=== PATIENT | male | born 1995 | race Caucasian/White ===

== ENCOUNTER 2017-10-03 16:48 | Emergency (ER) | payer MEDICAID, OTHER ==
[~2017-10-03] VITALS: Ht 182.9 cm; Wt 68.0 kg
[~2017-10-03 16:48] MED LIST: KEPP750T PO; OXCA600T PO
[2017-10-03 17:00] VITALS: BP 140/66; PULSE 105; RESP 20; TEMP 98.4; O2SAT 97
[2017-10-03] MEDS ORDERED: LORazepam 2 MG/ML VIAL IV PUSH ONE (17:15)
[2017-10-03] MEDS ORDERED: SODIUM CHLOR 0.9% 1000 ML INJ 1,000 ML IV ONE (17:15)
--- NOTE | 2017-10-03 17:24 | PD ---
HPI Chief Complaint: Seizure Time Seen by Provider: 17:01 Travel History International Travel<30 days: No Contact w/Intl Traveler<30days: No Traveled to known affect area: No History of Present Illness HPI 22-year-old male presents to emergency department after witnessed seizure. Patient reports a history of seizures in the past for many years. According to records she is on Tegretol and Keppra. Patient states she has been taking both his medications regularly. He denies any recent illness or injury. Otherwise has been feeling well. EMS describes about 1-1/2 minutes with the generalized tonic-clonic activity followed by postictal confusion. Patient gradually been coming around and seems more oriented now. I spoke to the patient's mom, Lizeth Oakley, who is coming to the emergency department. History Past Medical History Narrative Medical Seizure disorder Social History Alcohol Use: No Tobacco Use: No Allergies-Medications (Allergen,Severity, Reaction): Coded Allergies: latex (Unverified Allergy, Severe, HIVES , 10/03/17) Reported Meds & Prescriptions Reported Meds & Active Scripts Active Keppra (Levetiracetam) 750 Mg Tab 2 Tab PO BID Oxcarbazepine 600 Mg Tab 600 Mg PO BID Review of Systems Except as stated in HPI: all other systems reviewed are Neg Physical Exam Narrative GENERAL: Well-appearing 22-year-old man, no acute distress. SKIN: Focused skin assessment warm/dry. HEAD: Atraumatic. Normocephalic. EYES: Pupils equal and round. No scleral icterus. No injection or drainage. ENT: No nasal bleeding or discharge. Mucous membranes pink and moist. NECK: Trachea midline. No JVD. CARDIOVASCULAR: Regular rate and rhythm. No murmur appreciated. RESPIRATORY: No accessory muscle use. Clear to auscultation. Breath sounds equal bilaterally. GASTROINTESTINAL: Abdomen soft, non-tender, nondistended. Hepatic and splenic margins not palpable. MUSCULOSKELETAL: No obvious deformities. No clubbing. No cyanosis. No edema. NEUROLOGICAL: Awake and alert. Slight confusion. No obvious cranial nerve deficits. Motor grossly within normal limits. Normal speech. PSYCHIATRIC: Appropriate mood and affect; insight and judgment normal. Data Data Last Documented VS Vital Signs Date Time Temp Pulse Resp B/P (MAP) Pulse Ox O2 Delivery O2 Flow Rate FiO2 10/03/17 17:32 110 20 97 Room Air 10/03/17 17:00 98.4 140/66 (90) Orders Orders Complete Blood Count With Diff (10/03/17 17:06) Comprehensive Metabolic Panel (10/03/17 17:06) Iv Access Insert/Monitor (10/03/17 17:06) Lorazepam Inj (Ativan Inj) (10/03/17 17:15) Trileptal (Oxycarbazapine) (10/03/17 17:08) Sodium Chlor 0.9% 1000 Ml Inj (Ns 1000 M (10/03/17 17:15) Electrocardiogram (10/03/17 ) Labs Laboratory Tests Test 10/03/17 17:27 White Blood Count 8.3 TH/MM3 Red Blood Count 5.46 MIL/MM3 Hemoglobin 17.1 GM/DL Hematocrit 48.4 % Mean Corpuscular Volume 88.5 FL Mean Corpuscular Hemoglobin 31.3 PG Mean Corpuscular Hemoglobin Concent 35.3 % Red Cell Distribution Width 13.1 % Platelet Count 185 TH/MM3 Mean Platelet Volume 9.4 FL Neutrophils (%) (Auto) 50.0 % Lymphocytes (%) (Auto) 35.3 % Monocytes (%) (Auto) 11.1 % Eosinophils (%) (Auto) 3.0 % Basophils (%) (Auto) 0.6 % Neutrophils # (Auto) 4.2 TH/MM3 Lymphocytes # (Auto) 2.9 TH/MM3 Monocytes # (Auto) 0.9 TH/MM3 Eosinophils # (Auto) 0.3 TH/MM3 Basophils # (Auto) 0.0 TH/MM3 CBC Comment AUTO DIFF Differential Comment AUTO DIFF CONFIRMED Platelet Estimate NORMAL Platelet Morphology Comment NORMAL Blood Urea Nitrogen 9 MG/DL Creatinine 1.27 MG/DL Random Glucose 95 MG/DL Total Protein 7.7 GM/DL Albumin 4.6 GM/DL Calcium Level 9.2 MG/DL Alkaline Phosphatase 103 U/L Aspartate Amino Transf (AST/SGOT) 16 U/L Alanine Aminotransferase (ALT/SGPT) 25 U/L Total Bilirubin 0.5 MG/DL Sodium Level 137 MEQ/L Potassium Level 3.2 MEQ/L Chloride Level 99 MEQ/L Carbon Dioxide Level 23.4 MEQ/L Anion Gap 15 MEQ/L Estimat Glomerular Filtration Rate 70 ML/MIN [facility] Medical Decision Making Medical Screen Exam Complete: Yes Emergency Medical Condition: Yes Interpretation(s) My review of EKG: Sinus tachycardia at 128, normal axis, normal intervals, no acute ischemia. LABS: CBC is unremarkable. CMP is unremarkable. Tegretol pending Differential Diagnosis Seizure, electrolyte abnormality, head injury, other Narrative Course Medical decision making INITIAL: 22-year-old man presents to the emergency department with seizure. History of seizures. All medications. Looks well. No evidence of significant injury. Will check labs, reassess. Diagnosis Primary Impression: Seizure Patient Instructions: General Instructions Additional Instructions: Do not drive or operate heavy machinery until cleared by neurology. You should avoid being in any situation where if you had a seizure it could be dangerous such as swimming, looking on a ladder, or other such activities. Return to the emergency department for any seizures lasting more than 5 minutes , [id number] seizures, or seizures with prolonged confusion afterwards. Med/Other Pt SpecificInfo: No Change to Meds Disposition: 01 DISCHARGE HOME Condition: Stable Marquez Lorenzo MD Oct 03, 2017 17:24
[2017-10-03 18:16] LABS: AUTOMATED NEUTROPHIL # 4.2 TH/MM3 (1.8-7.7); BASOPHIL % 0.6 % (0.0-2.0); EOSINOPHIL # 0.3 TH/MM3 (0-0.4); HEMATOCRIT 48.4 % (39.0-51.0); HEMOGLOBIN 17.1 GM/DL (13.0-17.0); LYMPH % 35.3 % (9.0-44.0); LYMPHOCYTE # 2.9 TH/MM3 (1.0-4.8); MEAN CELL VOLUME 88.5 FL (80.0-100.0); MEAN CORPUSCULAR HEMOGLOBIN 31.3 PG (27.0-34.0); MEAN CORPUSCULAR HGB CONC 35.3 % (32.0-36.0); MEAN PLATELET VOLUME 9.4 FL (7.0-11.0); MONO % 11.1 % (0.0-8.0); MONOCYTE # 0.9 TH/MM3 (0-0.9); PLATELET COUNT 185 TH/MM3 (150-450); RED BLOOD COUNT 5.46 MIL/MM3 (4.50-5.90); RED CELL DISTRIBUTION WIDTH 13.1 % (11.6-17.2); WHITE BLOOD COUNT 8.3 TH/MM3 (4.0-11.0)
[2017-10-03 18:39] LABS: ALBUMIN 4.6 GM/DL (3.4-5.0); AST (GOT) 16 U/L (15-37); BICARBONATE 23.4 MEQ/L (21.0-32.0); BLOOD UREA NITROGEN 9 MG/DL (7-18); CALCIUM 9.2 MG/DL (8.5-10.1); CHLORIDE 99 MEQ/L (98-107); CREATININE 1.27 MG/DL (0.60-1.30); GLOMERULAR FILTRATION RATE 70 ML/MIN (>89); GLUCOSE,RANDOM 95 MG/DL (74-106); SODIUM (NA) 137 MEQ/L (136-145)
[2017-10-03 18:41] LABS: ALT (GPT) 25 U/L (12-78)
[2017-10-03 18:42] LABS: ALKALINE PHOSPHATASE 103 U/L (45-117); TOTAL BILIRUBIN ADULT 0.5 MG/DL (0.2-1.0); TOTAL PROTEIN 7.7 GM/DL (6.4-8.2)
[2017-10-03 19:32] VITALS: BP 120/66
--- NOTE | 2017-10-04 00:41 | EKG ---
Date Performed: 10/03/2017 Time Performed: 17:06:09 PTAGE: 22 years EKG: SINUS TACHYCARDIA NONSPECIFIC T-WAVE ABNORMALITY ABNORMAL RHYTHM ECG INTERPRETATION BASED O N A DEFAULT AGE OF 38 YEARS NO PREVIOUS TRACING DOCTOR: Rudolph Dumont Interpretating Date/Time 10/04/2017 00:40:48
== END 2017-10-03 19:35 | disposition home or self-care (01) ==
LOC: NEPC 16:48
DX: G40.909 Epilepsy, unspecified, not intractable, without status epilepticus (principal); R94.31 Abnormal electrocardiogram [ECG] [EKG]
CPT/HCPCS: 80053; 80183; 85025; 93005; 96374; 99284; J2060; J7030

== ENCOUNTER 2017-12-13 21:02 | Inpatient (IN) | payer MEDICAID ==
[~2017-12-13] VITALS: Ht 182.9 cm; Wt 93.1 kg
[2017-12-13 21:24] VITALS: BP 118/77; PULSE 80; RESP 16; TEMP 97.6; O2SAT 98
[2017-12-13 21:30] VITALS: RESP 16; O2SAT 99
[2017-12-13] MEDS ORDERED: TETANUS/DIPHTHERIA TOXOID ADULT 0.5 ML VIAL IM ONE (22:00)
[2017-12-13] MEDS ORDERED: LIDOCAINE 1%/EPINEPHrine 1:100,000 SOLN 20 ML VIAL INFIL ONE (22:00)
[2017-12-13] MEDS ORDERED: LIDOCAINE 1%/EPINEPHrine 1:100,000 SOLN 30 ML VIAL ONE (22:01)
--- NOTE | 2017-12-13 22:20 | PD ---
HPI Chief Complaint: Head Injury Time Seen by Provider: 21:53 Travel History International Travel<30 days: No Contact w/Intl Traveler<30days: No Traveled to known affect area: No History of Present Illness HPI 22-year-old male with history of seizure disorder, autism, presents with his mother for evaluation of a witnessed seizure. 3 hours prior to examination patient was at a store when he had a 1 minute generalized tonic-clonic seizure which his mother witnessed. He did hit his head against the ground. He has a laceration to the left parietal scalp as well as a generalized headache and some lightheadedness. There is no tongue biting or incontinence of urine. He denies any neck or back pain, chest pain or shortness of breath, abdominal pain , injury to the extremities. Last tetanus vaccination unknown. He has been compliant with this Keppra and oxcarbazepine regimen. His mother administer diazepam at home prior to arrival. No other complaints at this time. PFSH Past Medical History Developmental Delay: Yes Psychiatric: Yes (AUTISTIC) Respiratory: Yes (BRONCHITIS) Immunizations Current: Yes Seizures: Yes Social History Alcohol Use: No Tobacco Use: No Allergies-Medications (Allergen,Severity, Reaction): Coded Allergies: adhesive (Verified Allergy, Severe, 12/13/17) latex (Unverified Allergy, Severe, HIVES , 12/13/17) Reported Meds & Prescriptions Reported Meds & Active Scripts Active Keppra (Levetiracetam) 750 Mg Tab 2 Tab PO BID Oxcarbazepine 600 Mg Tab 600 Mg PO BID Review of Systems Except as stated in HPI: all other systems reviewed are Neg Physical Exam Narrative GENERAL: Pleasant well-developed well-nourished male in no acute distress awake and alert. SKIN: Warm and dry. 2 cm left parietal scalp laceration with underlying hematoma. HEAD: Skin as noted above. Normocephalic. EYES: Pupils equal and round. No scleral icterus. No injection or drainage. ENT: No nasal bleeding or discharge. Mucous membranes pink and moist. NECK: Trachea midline. No JVD. CARDIOVASCULAR: Regular rate and rhythm. No murmur appreciated. RESPIRATORY: No accessory muscle use. Clear to auscultation. Breath sounds equal bilaterally. GASTROINTESTINAL: Abdomen soft, non-tender, nondistended. Hepatic and splenic margins not palpable. MUSCULOSKELETAL: No obvious deformities. No clubbing. No cyanosis. No edema. NEUROLOGICAL: Awake and alert. No obvious cranial nerve deficits. Motor grossly within normal limits. Normal speech. Data Data Last Documented VS Vital Signs Date Time Temp Pulse Resp B/P (MAP) Pulse Ox O2 Delivery O2 Flow Rate FiO2 12/13/17 21:30 16 99 Room Air 12/13/17 21:24 97.6 80 Orders Orders Tetanus/Diphtheria Tox Adult (Tetanus/Di (12/13/17 22:00) Lidocai-Epi 1%-1:100,000 Inj (Xylocaine- (12/13/17 22:00) Lidocai-Epi 1%-1:100,000 Inj (Xylocaine- (12/13/17 22:01) Basic Metabolic Panel (Bmp) (12/13/17 22:27) Ct Brain W/O Iv Contrast(Rout) (12/13/17 ) Magnesium (Mg) (12/13/17 22:27) Blood Glucose (12/13/17 22:27) Complete Blood Count With Diff (12/14/17 00:21) Iv Access Insert/Monitor (12/14/17 00:21) Ecg Monitoring (12/14/17 00:21) Oximetry (12/14/17 00:21) Admit Order (Ed Use Only) (12/14/17 00:25) Consult Neurosurgery (12/14/17 ) MDM Medical Decision Making Medical Screen Exam Complete: Yes Emergency Medical Condition: Yes Medical Record Reviewed: Yes Differential Diagnosis Breakthrough seizure, medication noncompliance, closed head injury, intracranial hemorrhage, scalp laceration Narrative Course Laceration will be repaired with sumanth, he verbally consents. Tetanus status updated. CT the brain, BMP, blood glucose ordered. The patient will be monitored here. At the end of my shift the patient was signed out to Dr. Perez pending lab work and imaging studies. Procedures Procedure Narrative LACERATION LOCATION: Left parietal scalp LENGTH: 2 cm NUMBER OF STITCHES/SUMANTH: 4 REPAIR: The area of the laceration was prepped with Betadine and sterilely draped. The laceration was infiltrated with 1% lidocaine with epinephrine. The wound was copiously irrigated and explored without evidence of foreign body , tendon injury or neurovascular injury. The wound was closed using sumanth. This was a single layer repair. A sterile dressing was applied. The patient was advised to keep the dressing clean and dry. Patient tolerated the procedure well. Mathew Fitzpatrick Dec 13, 2017 22:20
--- NOTE | 2017-12-13 23:11 | RADRPT ---
EXAM DATE/TIME: 12/13/2017 22:56 [facility] COMPARISON: No previous studies available for comparison. INDICATIONS : Seizure. Fell hitting back of head. RADIATION DOSE: 37.65 CTDIvol (mGy) MEDICAL HISTORY : Seizures. SURGICAL HISTORY : None. ENCOUNTER: Initial ACUITY: 1 day PAIN SCALE: 7/10 LOCATION: cranial TECHNIQUE: Multiple contiguous axial images were obtained of the head. Using automated exposure control and adj ustment of the mA and/or kV according to patient size, radiation dose was kept as low as reasonably a chievable to obtain optimal diagnostic quality images. DICOM format image data is available electro nically for review and comparison. FINDINGS: There is a small left-sided subdural hematoma measuring up to 8 mm in thickness in the middle cranial fossa and less than 5 mm over the left convexity. This does not result in significant mass effect an d midline shift. No hydrocephalus. No acute bony abnormalities. CONCLUSION: Small left-sided subdural hematoma measuring up to 8 mm in thickness in the middle cr anial fossa. No significant mass effect or shift at this time. Braden Herrera MD on December 13, 2017 at 23:07 Board Certified Radiologist. This report was verified electronically.
[2017-12-14] VITALS (11 sets, daily range): BP systolic 121–147; BP diastolic 66–91; PULSE 62–82; RESP 16–22; TEMP 97.9–98.2; O2SAT 97–99
--- NOTE | 2017-12-14 00:17 | PD ---
Physical Exam Narrative Patient was seen by my assistant maintenance manager and signed out to me. Data Data Last Documented VS Vital Signs Date Time Temp Pulse Resp B/P (MAP) Pulse Ox O2 Delivery O2 Flow Rate FiO2 12/13/17 21:24 97.6 80 16 118/77 (91) 98 Room Air Orders Orders Tetanus/Diphtheria Tox Adult (Tetanus/Di (12/13/17 22:00) Lidocai-Epi 1%-1:100,000 Inj (Xylocaine- (12/13/17 22:00) Lidocai-Epi 1%-1:100,000 Inj (Xylocaine- (12/13/17 22:01) Basic Metabolic Panel (Bmp) (12/13/17 22:27) Ct Brain W/O Iv Contrast(Rout) (12/13/17 ) Magnesium (Mg) (12/13/17 22:27) Blood Glucose (12/13/17 22:27) MDM Supervised Visit with ZURI: Yes Interpretation(s) Last Impressions Head CT 12/13/17 0000 Signed Impressions: Service Date/Time: Wednesday, December 13, 2017 22:56 - CONCLUSION: Small left- sided subdural hematoma measuring up to 8 mm in thickness in the middle cranial fossa. No significant mass effect or shift at this time. Braden Herrera MD Diagnosis Primary Impression: Subdural hematoma Additional Impressions: Scalp laceration Qualified Codes: S01.01XA - Laceration without foreign body of scalp, initial encounter Breakthrough seizure Admitting Information Admitting Physician Requests: Admit Tomas Perez MD Dec 14, 2017 00:17
[2017-12-14 00:44] LABS: AUTOMATED NEUTROPHIL # 11.8 TH/MM3 (1.8-7.7); BASOPHIL % 0.1 % (0.0-2.0); HEMATOCRIT 49.8 % (39.0-51.0); HEMOGLOBIN 17.6 GM/DL (13.0-17.0); LYMPH % 3.3 % (9.0-44.0); LYMPHOCYTE # 0.4 TH/MM3 (1.0-4.8); MEAN CELL VOLUME 87.7 FL (80.0-100.0); MEAN CORPUSCULAR HEMOGLOBIN 30.9 PG (27.0-34.0); MEAN CORPUSCULAR HGB CONC 35.3 % (32.0-36.0); MEAN PLATELET VOLUME 9.3 FL (7.0-11.0); MONO % 4.5 % (0.0-8.0); MONOCYTE # 0.6 TH/MM3 (0-0.9); NEUT % 92.1 % (16.0-70.0); PLATELET COUNT 195 TH/MM3 (150-450); RED BLOOD COUNT 5.68 MIL/MM3 (4.50-5.90); RED CELL DISTRIBUTION WIDTH 12.4 % (11.6-17.2); WHITE BLOOD COUNT 12.8 TH/MM3 (4.0-11.0)
[2017-12-14 01:16] LABS: BICARBONATE 28.4 MEQ/L (21.0-32.0); CALCIUM 9.4 MG/DL (8.5-10.1); MAGNESIUM 2.5 MG/DL (1.5-2.5)
[2017-12-14] MEDS ORDERED: NURSING INFORMATION XX SCH (02:00)
[2017-12-14] MEDS ORDERED: ACETAMINOPHEN 325 MG TAB PO PRN (02:00)
[2017-12-14] MEDS ORDERED: CHLORHEXIDINE GLUCONATE 2 % 1 PACK (2 CLOTHS) TOP PRN (02:00)
[2017-12-14] MEDS ORDERED: SENNOSIDES 8.6 MG TAB PO PRN (02:00)
[2017-12-14] MEDS ORDERED: MAGNESIUM HYDROXIDE SUSP 30 ML CUP PO PRN (02:00)
[2017-12-14] MEDS ORDERED: BISACODYL 10 MG SUPP RECTAL PRN (02:00)
[2017-12-14] MEDS ORDERED: LACTULOSE SYRUP 20 GM/30 ML CUP PO PRN (02:00)
[2017-12-14] MEDS ORDERED: RESP: ALBUTEROL 2.5 MG/IPRATROPIUM 0.5 MG NEB (PRN) INH (02:00)
[2017-12-14] MEDS ORDERED: SODIUM CHLORIDE 0.9% FLUSH 10 ML FLUSH IV FLUSH PRN (02:00)
[2017-12-14] MEDS ORDERED: ONDANSETRON HCL 4 MG/2 ML VIAL IV PUSH PRN (02:00)
[2017-12-14] MEDS ORDERED: LORazepam 2 MG/ML VIAL IV PUSH PRN ×2 (02:00→15:15)
--- NOTE | 2017-12-14 02:06 | HHI.HP ---
HPI Service Critical Care Medicine Primary Care Physician Non-Staff Admission Diagnosis Subdural hematoma. Breakthrough seizure. Diagnosis: Travel History International Travel<30 Days: No Contact w/Intl Traveler <30 Da: No Traveled to Known Affected Are: No History of Present Illness 22-year-old male with history of seizure disorder, autism, presents for evaluation of a witnessed seizure. 3 hours prior to examination patient was at a store when he had a 1 minute generalized tonic-clonic seizure which his mother witnessed. He did hit his head against the ground. He has a laceration to the left parietal scalp as well as a generalized headache and some lightheadedness. He has been compliant with this Keppra and oxcarbazepine regimen. His mother administer diazepam at home prior to arrival. The CT of the head done at the emergency department showed a small 8 mm subdural hematoma. Review of Systems Constitutional: DENIES: Diaphoretic episodes, Fatigue, Fever, Weight gain, Weight loss, Chills, Dizziness, Change in appetite, Night Sweats Endocrine: DENIES: Heat/cold intolerance, Polydipsia, Polyuria, Polyphagia Eyes: DENIES: Blurred vision, Diplopia, Eye inflammation, Eye pain, Vision loss , Photosensitivity, Double Vision Ears, nose, mouth, throat: DENIES: Tinnitus, Hearing loss, Vertigo, Nasal discharge, Oral lesions, Throat pain, Hoarseness, Ear Pain, Running Nose, Epistaxis, Sinus Pain, Toothache, Odynophagia Respiratory: DENIES: Apneas, Cough, Snoring, Wheezing, Hemoptysis, Sputum production, Shortness of breath Cardiovascular: DENIES: Chest pain, Palpitations, Syncope, Dyspnea on Exertion , PND, Lower Extremity Edema, Orthopnea, Claudication Gastrointestinal: DENIES: Abdominal pain, Black stools, Bloody stools, Constipation, Diarrhea, Nausea, Vomiting, Difficulty Swallowing, Anorexia Genitourinary: DENIES: Sexual dysfunction, Urinary frequency, Urinary incontinence, Urgency, Hematuria, Dysuria, Nocturia, Penile Discharge, Testicular Pain, Testicular Swelling Musculoskeletal: DENIES: Joint pain, Muscle aches, Stiffness, Joint Swelling, Back pain, Neck pain Integumentary: DENIES: Abnormal pigmentation, Nail changes, Pruritus, Rash Hematologic/lymphatic: DENIES: Bruising, Lymphadenopathy Immunologic/allergic: DENIES: Eczema, Urticaria Neurologic: COMPLAINS OF: Headache, Seizures, DENIES: Abnormal gait, Localized weakness, Paresthesias, Speech Problems, Tremor, Poor Balance Psychiatric: DENIES: Anxiety, Confusion, Mood changes, Depression, Hallucinations, Agitation, Suicidal Ideation, Homicidal Ideation, Delusions Past Family Social History Allergies: Coded Allergies: adhesive (Verified Allergy, Severe, 12/13/17) latex (Unverified Allergy, Severe, HIVES , 12/13/17) Past Medical History Developmental Delay: Yes Psychiatric: Yes (AUTISTIC) Respiratory: Yes (BRONCHITIS) Immunizations Current: Yes Seizures: Yes Past Surgical History No significant Reported Medications Reported Meds & Active Scripts Active Keppra (Levetiracetam) 750 Mg Tab 2 Tab PO BID Oxcarbazepine 600 Mg Tab 600 Mg PO BID Active Ordered Medications Current Medications Medications (Trade) Dose Ordered Sig/Yves Route PRN Reason Start Time Stop Time Status Last Admin Dose Admin Oxcarbazepine (Trileptal) 600 mg BID PO 12/14/17 09:00 Levetriacetam (Keppra) 1,500 mg BID PO 12/14/17 09:00 Sodium Chloride 1,000 ml @ 124 mls/hr Q8H4M IV 12/14/17 01:57 12/14/17 03:28 Sodium Chloride (NS Flush) 2 ml UNSCH PRN IV FLUSH FLUSH AFTER USING IV ACCESS 12/14/17 02:00 Sodium Chloride (NS Flush) 2 ml BID IV FLUSH 12/14/17 09:00 Acetaminophen (Tylenol) 650 mg Q6H PRN PO PAIN 1-10 AND/OR FEVER >101F 12/14/17 02:00 Famotidine (Pepcid Inj) 20 mg Q12HR IV PUSH 12/14/17 09:00 Lorazepam (Ativan Inj) 1 mg Q1H PRN IV PUSH Seizure 12/14/17 02:00 Ondansetron HCl (Zofran Inj) 4 mg Q6H PRN IV PUSH NAUSEA OR VOMITING 12/14/17 02:00 Albuterol/ Ipratropium (Duoneb Neb) 1 ampule Q2HR NEB PRN INH WHEEZING 12/14/17 02:00 Miscellaneous Information 1 [id number] XX 12/14/17 02:00 Chlorhexidine Gluconate (Chlorhexidine 2% Cloth) 3 pack Taper DAILY@04 TOP 12/14/17 04:00 12/10/18 03:59 Chlorhexidine Gluconate (Chlorhexidine 2% Cloth) 3 pack UNSCH PRN TOP HYGIENIC CARE 12/14/17 02:00 Senna/Docusate Sodium (Isamar-Colace) 1 tab BID PO 12/14/17 09:00 Magnesium Hydroxide (Milk Of Magnesia Liq) 30 ml Q12H PRN PO Mild constipation 12/14/17 02:00 Sennosides (Senokot) 17.2 mg Q12H PRN PO Moderate constipation 12/14/17 02:00 Bisacodyl (Dulcolax Supp) 10 mg DAILY PRN RECTAL SEVERE CONSITIPATION 12/14/17 02:00 Lactulose (Lactulose Liq) 30 ml DAILY PRN PO SEVERE CONSITIPATION 12/14/17 02:00 Family History No family history significant of seizure disorder or EVENTS ASSOCIATE cancer Social History Negative for tobacco, alcohol, or illicit drug abuse Physical Exam Vital Signs Vital Signs Date Time Temp Pulse Resp B/P (MAP) Pulse Ox O2 Delivery O2 Flow Rate FiO2 12/13/17 21:30 16 99 Room Air 12/13/17 21:24 97.6 80 16 118/77 (91) 98 Room Air Physical Exam GENERAL: Very pleasant young gentleman well-developed well-nourished male in no acute distress awake and alert. SKIN: Warm and dry. 2 cm left parietal scalp laceration with underlying hematoma. HEAD: Skin as noted above. Normocephalic. EYES: Pupils equal and round. No scleral icterus. No injection or drainage. ENT: No nasal bleeding or discharge. Mucous membranes pink and moist. NECK: Trachea midline. No JVD. CARDIOVASCULAR: Regular rate and rhythm. No murmur appreciated. RESPIRATORY: No accessory muscle use. Clear to auscultation. Breath sounds equal bilaterally. GASTROINTESTINAL: Abdomen soft, non-tender, nondistended. Hepatic and splenic margins not palpable. MUSCULOSKELETAL: No obvious deformities. No clubbing. No cyanosis. No edema. NEUROLOGICAL: Awake and alert. No obvious cranial nerve deficits. Motor grossly within normal limits. Normal speech. Laboratory Laboratory Tests Test 12/14/17 00:30 White Blood Count 12.8 Red Blood Count 5.68 Hemoglobin 17.6 Hematocrit 49.8 Mean Corpuscular Volume 87.7 Mean Corpuscular Hemoglobin 30.9 Mean Corpuscular Hemoglobin Concent 35.3 Red Cell Distribution Width 12.4 Platelet Count 195 Mean Platelet Volume 9.3 Neutrophils (%) (Auto) 92.1 Lymphocytes (%) (Auto) 3.3 Monocytes (%) (Auto) 4.5 Eosinophils (%) (Auto) 0.0 Basophils (%) (Auto) 0.1 Neutrophils # (Auto) 11.8 Lymphocytes # (Auto) 0.4 Monocytes # (Auto) 0.6 Eosinophils # (Auto) 0.0 Basophils # (Auto) 0.0 CBC Comment DIFF FINAL Differential Comment Blood Urea Nitrogen 9 Creatinine 1.00 Random Glucose 122 Calcium Level 9.4 Magnesium Level 2.5 Sodium Level 141 Potassium Level 4.2 Chloride Level 103 Carbon Dioxide Level 28.4 Anion Gap 10 Estimat Glomerular Filtration Rate 92 Result Diagram: 12/14/172912/14/1729 Caprini VTE Risk Assessment Caprini VTE Risk Assessment: Mod/High Risk (score >= 2) Caprini Risk Assessment Model Point Value = 1 Point Value = 2 Point Value = 3 Point Value = 5 Age 41-60 Minor surgery BMI > 25 kg/m2 Swollen legs Varicose veins or History of unexplained or recurrent spontaneous Oral contraceptives or hormone replacement Sepsis (< 1 month) Serious lung disease, including pneumonia (< 1 month) Abnormal pulmonary function Acute myocardial infarction Congestive heart failure (< 1 month) History of inflammatory bowel disease Medical patient at bed rest Age 61-74 Arthroscopic surgery Major open surgery (> 45 min) Laparoscopic surgery (> 45 min) Malignancy Confined to bed (> 72 hours) Immobilizing plaster cast Central venous access Age >= 75 History of VTE Family history of VTE Factor V Leiden Prothrombin [id number] Lupus anticoagulant Anticardiolipin antibodies Elevated serum homocysteine Heparin-induced thrombocytopenia Other congenital or acquired thrombophilia Stroke (< 1 month) Elective arthroplasty Hip, pelvis, or leg fracture Acute spinal cord injury (< 1 month) Prophylaxis Regimen Total Risk Factor Score Risk Level Prophylaxis Regimen 0-1 Low Early ambulation 2 Moderate Order ONE of the following: *Sequential Compression Device (SCD) *Heparin 5000 units SQ BID 3-4 Higher Order ONE of the following medications: *Heparin 5000 units SQ TID *Enoxaparin/Lovenox 40 mg SQ daily (WT < 150 kg, CrCl > 30 mL/min) *Enoxaparin/Lovenox 30 mg SQ daily (WT < 150 kg, CrCl > 10-29 mL/min) *Enoxaparin/Lovenox 30 mg SQ BID (WT < 150 kg, CrCl > 30 mL/min) AND/OR *Sequential Compression Device (SCD) 5 or more Highest Order ONE of the following medications: *Heparin 5000 units SQ TID (Preferred with Epidurals) *Enoxaparin/Lovenox 40 mg SQ daily (WT < 150 kg, CrCl > 30 mL/min) *Enoxaparin/Lovenox 30 mg SQ daily (WT < 150 kg, CrCl > 10-29 mL/min) *Enoxaparin/Lovenox 30 mg SQ BID (WT < 150 kg, CrCl > 30 mL/min) AND *Sequential Compression Device (SCD) Assessment and Plan Assessment and Plan Seizure disorder -Resume home medications -Keppra -Oxcarbazepine (Trileptal) -Lorazepam as needed -Neurology consultation Subdural hematoma -Admit to neuro ICU -Neuro checks per unit protocol -Neurosurgical consultation in place -No neurosurgical intervention indicated at this time -Coags pending -Repeat CT head in 24 hours -Further management per neurosurgeon DVT GI prophylaxis -Spencer's and SCDs -Early aggressive mobilization -No pharmacological DVT prophylaxis due to acute subdural hematoma -Pepcid Critical Care: The total critical care time was 35 minutes. Time to perform other separately billable procedures was not included in the critical care time. Michele Mike MD Dec 14, 2017 2:06 am
[2017-12-14] MEDS: CHLORHEXIDINE GLUCONATE 2 % 1 PACK (2 CLOTHS) TOP SCH (03:28)
[2017-12-14] MEDS: SODIUM CHLOR 0.9% 1000 ML INJ 1,000 ML IV SCH ×2 (03:28→10:42)
[2017-12-14 06:08] LABS: INTERNATIONAL NORMALIZED RATIO 1.1 RATIO; PROTHROMBIN TIME - PATIENT 11.4 SEC (9.8-11.6)
--- NOTE | 2017-12-14 07:30 | HHI.CCPN ---
Subjective Remarks/Hospital Course 22-year-old male with history of seizure disorder, autism, presents for evaluation of a witnessed seizure. 3 hours prior to examination patient was at a store when he had a 1 minute generalized tonic-clonic seizure which his mother witnessed. He did hit his head against the ground. He has a laceration to the left parietal scalp as well as a generalized headache and some lightheadedness. He has been compliant with this Keppra and oxcarbazepine regimen. His mother administer diazepam at home prior to arrival. The CT of the head done at the emergency department showed a small 8 mm subdural hematoma. Subjective 12/14: Patient seen and examined. Wants to go home. No new seizure activity since hospitalization. Consultation to neurosurgery and neurology currently pending. Objective Vital Signs Date Time Temp Pulse Resp B/P (MAP) Pulse Ox O2 Delivery O2 Flow Rate FiO2 12/14/17 04:00 98.2 66 16 128/74 (92) 99 12/14/17 03:30 Room Air Intake and Output 12/14/17 12/14/17 12/15/17 08:00 16:00 00:00 Intake Total 0 ml Balance 0 ml Result Diagram: 12/14/17 0030 12/14/17 0030 Imaging Last Impressions Head CT 12/13/17 0000 Signed Impressions: Service Date/Time: Wednesday, December 13, 2017 22:56 - CONCLUSION: Small left- sided subdural hematoma measuring up to 8 mm in thickness in the middle cranial fossa. No significant mass effect or shift at this time. Braden Herrera MD Objective Remarks GENERAL: 22-year-old male currently resting in bed in no acute distress SKIN: Warm and dry. 2 cm left parietal scalp laceration with underlying hematoma. HEAD: Skin as noted above. Normocephalic. EYES: Pupils equal and round about 3 mm and reactive. No scleral icterus. No injection or drainage. ENT: No nasal bleeding or discharge. Mucous membranes pink and moist. NECK: Trachea midline. No JVD. CARDIOVASCULAR: Regular rate and rhythm. S1, S2. No S4. Without murmur RESPIRATORY: No accessory muscle use. Clear to auscultation. Breath sounds equal bilaterally. GASTROINTESTINAL: Abdomen soft, non-tender, nondistended. Hepatic and splenic margins not palpable. MUSCULOSKELETAL: No obvious deformities. No significant peripheral edema. NEUROLOGICAL: Awake and alert. No obvious cranial nerve deficits. Motor grossly within normal limits. Normal speech. Urinary Catheter: No Assessment to: Continue Vascular Central Line Catheter: No Assessment to: Continue A/P Assessment and Plan Neuro/Psych: Traumatic subdural hematoma Seizure disorder NOS Autism CT brain 12/14 revealed a left subdural hematoma with an 8 mm diameter to middle cranial fossa and 5 mm of left crux Continue oxcarbazepine 600 mg by mouth twice daily and levetiracetam 1500 mg twice daily/home medication Seizure precautions Neurology/neurosurgery have been consulted by overnight organ tuner EEG has been ordered Repeat head CT at 0800 Acetaminophen 650 mg by mouth every 6 hours as needed fever/pain 1 through 10 Hydromorphone 0.5 mg IV every 4 hours as needed breakthrough pain CV: Currently on normal saline at 100 cc an hour. Goal keep systolic blood pressure greater than 100-110 Resp: Nasal cannula if indicated to maintain saturations greater than or equal to 92% Incentive spirometry while awake GI: N.p.o. except for medications Pantoprazole for GI prophylaxis Docusate sodium/senna 1 tablet twice daily for bowel regimen : No indication for Hammonds catheter Endo: Sliding scale insulin with Accu-Cheks before meals/at bedtime to maintain euglycemia/low regimen of NovoLog Renal: Creatinine currently within normal limits Monitor urine output Accurate I's and O's Heme: Leukocytosis Elevated hemoglobin Monitor CBC daily. Follow trends. No indication for transfusion of blood products at this time. Coags within normal limits Elevated white blood cell count likely stress leukemoid type reaction. Recheck in a.m. ID: MRSA nares negative Monitor for sequelae of infection FEN: Replace electrolytes as clinically indicated MSK: Left parietal scalp laceration status post stapling PT/OT evaluate and treat Access -Utilize peripheral IV. Central line if indicated Prophylaxis -GI -pantoprazole -DVT -SCD/holding pharmacological prophylaxis with acute traumatic subdural hematoma. Initiate when okay with neurosurgery -Resume home medications -Keppra -Oxcarbazepine (Trileptal) -Lorazepam as needed -Neurology consultation Subdural hematoma -Admit to neuro ICU -Neuro checks per unit protocol -Neurosurgical consultation in place -No neurosurgical intervention indicated at this time -Coags pending -Repeat CT head in 24 hours -Further management per neurosurgeon DVT GI prophylaxis -Spencer's and SCDs -Early aggressive mobilization -No pharmacological DVT prophylaxis due to acute subdural hematoma -Pepcid 15 additional minutes spent noncritical evaluated this patient. Clement Giron MD Dec 14, 2017 07:30
[2017-12-14] MEDS ORDERED: RESP: ALBUTEROL 2.5 MG/3 ML NEB (PRN) NEB (07:45)
[2017-12-14] MEDS ORDERED: HYDROmorphone HCL PF 0.5 MG/0.5 ML SYRINGE IV PUSH PRN (07:45)
[2017-12-14] MEDS ORDERED: POTASSIUM CHLOR 20 MEQ PREMIX 100 ML IV PRN ×2 (08:00)
[2017-12-14] MEDS ORDERED: MAGNESIUM OXIDE 400 MG TAB PO PRN (08:00)
[2017-12-14] MEDS ORDERED: GLUCAGON 1 MG/ML VIAL OTHER PRN (08:00)
[2017-12-14] MEDS: INSULIN ASPART SUPPLEMENTAL SCALE SQ SCH ×4 (08:00→20:18)
[2017-12-14] MEDS ORDERED: MAGNESIUM SULFATE INJ 4 GM in SODIUM CHLORIDE 0.9% INJ 92 ML IV PRN (08:00)
[2017-12-14] MEDS ORDERED: POTASSIUM CHLORIDE 25 MEQ EFFERVESCENT TAB PO PRN (08:00)
[2017-12-14] MEDS ORDERED: DEXTROSE 50% IN WATER 50 ML VIAL(D50) IV PUSH PRN (08:00)
[2017-12-14] MEDS ORDERED: POTASSIUM PHOSPHATE MONOBASIC 500 MG TAB PO/TUBE PRN (08:00)
[2017-12-14] MEDS ORDERED: SODIUM PHOSPHATE INJ 30 MMOL in SODIUM CHLOR 0.9% 250 ML INJ 240 ML IV PRN (08:00)
[2017-12-14] MEDS ORDERED: POTASSIUM PHOSPHATE MONOBASIC 500 MG TAB PO PRN (08:00)
[2017-12-14] MEDS ORDERED: POTASSIUM PHOSPHATE INJ 30 MMOL in SODIUM CHLOR 0.9% 250 ML INJ 250 ML IV PRN (08:00)
[2017-12-14] MEDS ORDERED: POTASSIUM CHLOR 40 MEQ PREMIX 100 ML IV PRN ×2 (08:00)
[2017-12-14] MEDS ORDERED: MAGNESIUM SULFATE INJ 2 GM in SODIUM CHLORIDE 0.9% INJ 96 ML IV PRN (08:00)
[2017-12-14] MEDS ORDERED: MAGNESIUM SULFAT 1 GM PREMIX 100 ML x4 bags IV PRN (08:45)
[2017-12-14] MEDS ORDERED: MAGNESIUM SULFAT 1 GM PREMIX 100 ML x2 bags IV PRN (08:45)
[2017-12-14] MEDS: DOCUSATE SODIUM 50 MG/SENNA 8.6 MG TAB PO SCH ×2 (08:54→20:18)
[2017-12-14] MEDS: SODIUM CHLORIDE 0.9% FLUSH 10 ML FLUSH IV FLUSH SCH ×2 (08:54→20:17)
[2017-12-14] MEDS: PANTOPRAZOLE SOD 40 MG DELAYED RELEASE TAB PO SCH (08:54)
[2017-12-14] MEDS: levETIRAcetam 500 MG TAB PO SCH ×2 (08:54→20:18)
[2017-12-14] MEDS ORDERED: FAMOTIDINE 20 MG/2 ML VIAL IV PUSH SCH (09:00)
[2017-12-14] MEDS: OXcarbazepine 600 MG TAB PO SCH ×2 (09:25→20:18)
--- NOTE | 2017-12-14 11:13 | RADRPT ---
EXAM DATE/TIME: 12/14/2017 09:56 [facility] COMPARISON: CT BRAIN W/O CONTRAST, December 13, 2017, 22:56. INDICATIONS : Follow up left-sided subdural hematoma RADIATION DOSE: 39.83 CTDIvol (mGy) MEDICAL HISTORY : Seizures. SURGICAL HISTORY : None. ENCOUNTER: Initial ACUITY: 2 days PAIN SCALE: 3/10 LOCATION: cranial TECHNIQUE: Multiple contiguous axial images were obtained of the head. Using automated exposure control and adj ustment of the mA and/or kV according to patient size, radiation dose was kept as low as reasonably a chievable to obtain optimal diagnostic quality images. DICOM format image data is available electro nically for review and comparison. FINDINGS: CEREBRUM: The ventricles are normal for age. Small subdural hematoma in the anterior and anterolateral aspects of the left middle cranial fossa is definitely no bigger and may actually be slightly smaller compare d to prior. There may be a small amount of subdural blood tracking along the left tentorium on the cu rrent study. POSTERIOR FOSSA: The cerebellum and brainstem are intact. The 4th ventricle is midline. The cerebellopontine angle i s unremarkable. EXTRACRANIAL: The visualized portion of the orbits is intact. SKULL: There appears to be a linear, nondisplaced fracture through the floor of the left middle cranial clint a/sphenoid wing. CONCLUSION: 1. Small subdural in the anterior and anterior lateral aspect of the left middle cranial fossa is no bigger and may actually be slightly smaller when compared to the prior. 2. There may be a small amount of blood now tracking along the left tentorium which could represent r edistribution of the previously seen subdural collection. No midline shift. 3. Subtle, nondisplaced fracture through the floor of the left middle cranial fossa/sphenoid wing. Jorge Zepeda MD on December 14, 2017 at 11:04 Board Certified Radiologist. This report was verified electronically.
--- NOTE | 2017-12-14 12:08 | MG ---
cc: Clif Patel MD, PhD TEST NUMBER: [id number]. TECHNIQUE: This is a 17-channel EEG. DESCRIPTION: The background rhythm reveals mild slowing in the theta range at 6 Hz. Amplitude 20-30 microvolts. Occasional muscle artifact is identified. There are no lateralizing features identified. There does appear to be sleep activity in terms of normal sleep spindles as well as vertex sharp waves. INTERPRETATION: This appears to be a normal sleep EEG. Clif Patel MD, PhD KARINA/SERENA , 11:57 AM , 12:07 PM
--- NOTE | 2017-12-14 15:39 | MB ---
cc: Clif Patel MD, PhD DATE: 12/14/2017 REASON FOR CONSULTATION: Seizure. HISTORY OF PRESENT ILLNESS: Mr. Oakley is a 22-year-old man who has a long history of seizure disorder as well as autism. He is on Trileptal 600 mg b.i.d. and Keppra 1500 mg b.i.d. for seizure control, which has been fairly good at controlling his generalized tonic-clonic seizures, but he gets many breakthrough small seizures where his mother states he has staring off into space. Yesterday while in the store, he had a generalized tonic-clonic seizure, did strike his head. This resulted in a small subdural hematoma. He has been compliant with his medications. PAST MEDICAL HISTORY: History of autism, seizure disorder, bronchitis. MEDICATIONS: He takes Trileptal 600 mg b.i.d., Keppra 1500 mg b.i.d. He is also on Protonix, Isamar-Colace. NEUROLOGICAL PHYSICAL EXAMINATION: VITAL SIGNS: Blood pressure is 128/74, pulse 66, respiratory rate is 16, temperature 98 degrees. NEUROLOGIC: Higher cortical function: Alert. He has no spontaneous speech at this time. Cranial nerves intact. Motor exam: There is no focal deficit. Reflexes are symmetric. CT scan of the brain, small subdural hematoma in the anterior inferior lateral aspect of the left middle cranial fossa. No mass effect is identified. LABORATORY DATA: The white count is 12,800, hemoglobin 17.6, hematocrit 49.8%, platelet count 195,000. PT 11.4, INR 1.1, APTT 26.1. Sodium 141, potassium 4.2, chloride 103, CO2 is 28, BUN is 9, creatinine 1, glucose 122. ASSESSMENT: 1. Autism with generalized tonic-clonic seizures. Also, probably petit mal seizures or complex partial seizures. 2. Small subdural hematoma from head trauma. RECOMMENDATION: Recommend starting the patient on Depakote, continue for now Trileptal and Keppra, although in the future may be able to get him off Trileptal. Will also place him under seizure precautions. Neurosurgery evaluation regarding the subdural hematoma. Clif Patel MD, PhD KARINA/TL , 03:12 PM , 03:38 PM
--- NOTE | 2017-12-14 15:50 | PD.CONS ---
History of Present Illness Service Neurosurgery Consult Requested By General surgery trauma service Reason for Consult Traumatic brain injury Primary Care Physician Non-Staff Diagnoses: History of Present Illness 22-year-old male with history of autism and seizure disorder. The patient had a witnessed seizure last evening. He recalls part of the event and states that he was at a store when he felt the seizure starting. He states that he awoke at home with his mother cleaning some blood off of his head. The patient apparently did fall and strike his head on the ground with a left parietal scalp laceration. He was brought to the emergency room where a CT scan revealed subdural versus epidural hematoma. He has no complaint of significant headache. Mild neck and low back discomfort. No nausea or vomiting. Review of Systems Constitutional: DENIES: Dizziness Eyes: DENIES: Blurred vision, Diplopia Ears, nose, mouth, throat: DENIES: Vertigo Respiratory: DENIES: Shortness of breath Cardiovascular: DENIES: Chest pain Gastrointestinal: DENIES: Abdominal pain, Nausea, Vomiting Musculoskeletal: COMPLAINS OF: Back pain, Neck pain, DENIES: Muscle aches Hematologic/lymphatic: DENIES: Bruising Neurologic: DENIES: Abnormal gait, Headache Psychiatric: DENIES: Confusion Past Family Social History Allergies: Coded Allergies: adhesive (Verified Allergy, Severe, 12/13/17) latex (Unverified Allergy, Severe, HIVES , 12/13/17) Past Medical History History of autism, seizure disorder. Bronchitis Past Surgical History No major surgeries reported Reported Medications Reported Meds & Active Scripts Active Keppra (Levetiracetam) 750 Mg Tab 2 Tab PO BID Oxcarbazepine 600 Mg Tab 600 Mg PO BID Family History Negative per the patient, although may not be accurate historian. Social History No alcohol or cigarettes Physical Exam Vital Signs Vital Signs Date Time Temp Pulse Resp B/P (MAP) Pulse Ox O2 Delivery O2 Flow Rate FiO2 12/14/17 14:00 62 12/14/17 12:00 98.1 62 22 121/71 (88) 99 12/14/17 12:00 62 12/14/17 10:00 82 12/14/17 08:00 97.9 62 18 125/76 (92) 99 12/14/17 08:00 62 12/14/17 07:00 99 Room Air 12/14/17 04:00 98.2 66 16 128/74 (92) 99 12/14/17 03:30 Room Air 12/14/17 03:30 98.2 67 22 147/91 (109) 99 12/14/17 03:28 12/13/17 21:30 16 99 Room Air 12/13/17 21:24 97.6 80 16 118/77 (91) 98 Room Air Physical Exam GENERAL: This is a well-nourished, well-developed patient, no apparent distress. SKIN: No abrasions, contusion, rash noted. Skin warm and dry. HEAD: Atraumatic. Normocephalic. No temporal or scalp tenderness. EYES: Sclerae are clear and nonicteric ENT: No facial edema or ecchymosis. No periorbital edema. No CSF otorrhea or rhinorrhea. No palpable facial fracture or deformity. NECK: Trachea midline. No cervical spine tenderness. CARDIOVASCULAR: Regular rate and rhythm without murmurs, gallops, or rubs. RESPIRATORY: Clear to auscultation. Breath sounds equal bilaterally. No wheezes , rales, or rhonchi. GASTROINTESTINAL: Abdomen soft, non-tender, nondistended. No hepato-splenomegaly , or palpable masses. No guarding. MUSCULOSKELETAL: Extremities without cyanosis, or edema. No joint tenderness, or edema noted. No calf tenderness. Dorsalis pedis pulses 2+ bilateral NEUROLOGICAL: Awake and alert Oriented X 3 Speech is slow but relatively clear Conversant and appropriate Follow simple commands well Answers questions appropriately Seems to have somewhat diminished judgment and insight-probably underlying baseline Recent and remote memory are intact No evidence of anxiety or depression Pupils are equal and reactive to accommodation. Extra-ocular movements, visual [place] to confrontation, facial sensorimotor, tongue, palate, sternocleidomastoid testing, hearing to finger rub testing, and bilateral shoulder shrug are all intact. Sensation is intact to light touch in all extremities Strength normal major flexion and extension groups all extremities Birdie's absent bilaterally No ankle clonus Plantar responses absent bilateral Fine motor movements intact upper extremities Laboratory Laboratory Tests Test 12/14/17 00:30 12/14/17 03:25 12/14/17 05:30 White Blood Count 12.8 Red Blood Count 5.68 Hemoglobin 17.6 Hematocrit 49.8 Mean Corpuscular Volume 87.7 Mean Corpuscular Hemoglobin 30.9 Mean Corpuscular Hemoglobin Concent 35.3 Red Cell Distribution Width 12.4 Platelet Count 195 Mean Platelet Volume 9.3 Neutrophils (%) (Auto) 92.1 Lymphocytes (%) (Auto) 3.3 Monocytes (%) (Auto) 4.5 Eosinophils (%) (Auto) 0.0 Basophils (%) (Auto) 0.1 Neutrophils # (Auto) 11.8 Lymphocytes # (Auto) 0.4 Monocytes # (Auto) 0.6 Eosinophils # (Auto) 0.0 Basophils # (Auto) 0.0 CBC Comment DIFF FINAL Differential Comment Blood Urea Nitrogen 9 Creatinine 1.00 Random Glucose 122 Calcium Level 9.4 Magnesium Level 2.5 Sodium Level 141 Potassium Level 4.2 Chloride Level 103 Carbon Dioxide Level 28.4 Anion Gap 10 Estimat Glomerular Filtration Rate 92 Nasal Screen MRSA (PCR) MRSA NOT DETECTED Prothrombin Time 11.4 Prothromb Time International Ratio 1.1 Activated Partial Thromboplast Time 26.1 Result Diagram: 12/14/17 0030 12/14/17 003 Imaging 12/14/2017 CT scan head images are reviewed. The study reveals a small subdural versus epidural hematoma at the left anterior lateral middle cranial fossa without significant overall mass-effect. This is associated with a nondisplaced fracture through the floor of the left middle cranial fossa. Head CT 12/14/17 0800 Signed Impressions: Service Date/Time: Thursday, December 14, 2017 09:56 - CONCLUSION: 1. Small subdural in the anterior and anterior lateral aspect of the left middle cranial fossa is no bigger and may actually be slightly smaller when compared to the prior. 2. There may be a small amount of blood now tracking along the left tentorium which could represent redistribution of the previously seen subdural collection. No midline shift. 3. Subtle, nondisplaced fracture through the floor of the left middle cranial fossa/sphenoid wing. Jorge Zepeda MD Assessment and Plan Assessment and Plan Impression: 1. Traumatic brain injury with relatively small left middle cranial fossa subdural versus epidural hematoma without significant mass-effect 2. Left middle cranial fossa skull base fracture-closed nondepressed. 3. Seizure disorder Recommendations: Findings were discussed with the patient Due to the possibility of epidural hematoma, I would like for him to be observed for an additional day in the surgical intensive care unit. He may advance diet as tolerated and mobilize out of bed with assistance. Continue nonchemical DVT prophylaxis. EEG pending Neurology following for seizures Kris Curran MD Dec 14, 2017 15:50
[2017-12-14] MEDS: DIVALPROEX SODIUM E.R. 250 MG TAB PO SCH (20:18)
[2017-12-15] VITALS (13 sets, daily range): BP systolic 122–131; BP diastolic 76–84; PULSE 54–74; RESP 13–19; TEMP 97.9–98.5; O2SAT 96–99
[2017-12-15] MEDS: CHLORHEXIDINE GLUCONATE 2 % 1 PACK (2 CLOTHS) TOP SCH (03:04)
[2017-12-15 03:18] LABS: AUTOMATED NEUTROPHIL # 6.1 TH/MM3 (1.8-7.7); BASOPHIL % 0.3 % (0.0-2.0); EOSINOPHIL % 0.4 % (0.0-4.0); HEMATOCRIT 41.7 % (39.0-51.0); HEMOGLOBIN 14.7 GM/DL (13.0-17.0); LYMPH % 17.5 % (9.0-44.0); LYMPHOCYTE # 1.4 TH/MM3 (1.0-4.8); MEAN CELL VOLUME 88.5 FL (80.0-100.0); MEAN CORPUSCULAR HEMOGLOBIN 31.1 PG (27.0-34.0); MEAN CORPUSCULAR HGB CONC 35.2 % (32.0-36.0); MONO % 8.5 % (0.0-8.0); MONOCYTE # 0.7 TH/MM3 (0-0.9); NEUT % 73.3 % (16.0-70.0); PLATELET COUNT 146 TH/MM3 (150-450); RED BLOOD COUNT 4.72 MIL/MM3 (4.50-5.90); RED CELL DISTRIBUTION WIDTH 12.4 % (11.6-17.2); WHITE BLOOD COUNT 8.3 TH/MM3 (4.0-11.0)
[2017-12-15 03:37] LABS: ALBUMIN 3.6 GM/DL (3.4-5.0); ALKALINE PHOSPHATASE 83 U/L (45-117); ALT (GPT) 23 U/L (12-78); AST (GOT) 16 U/L (15-37); BICARBONATE 29.1 MEQ/L (21.0-32.0); BLOOD UREA NITROGEN 8 MG/DL (7-18); CALCIUM 8.5 MG/DL (8.5-10.1); CHLORIDE 105 MEQ/L (98-107); GLOMERULAR FILTRATION RATE 119 ML/MIN (>89); GLUCOSE,RANDOM 108 MG/DL (74-106); MAGNESIUM 2.1 MG/DL (1.5-2.5); SODIUM (NA) 141 MEQ/L (136-145); TOTAL BILIRUBIN ADULT 0.7 MG/DL (0.2-1.0); TOTAL PROTEIN 6.4 GM/DL (6.4-8.2)
[2017-12-15 03:42] LABS: INTERNATIONAL NORMALIZED RATIO 1.1 RATIO; PROTHROMBIN TIME - PATIENT 10.7 SEC (9.8-11.6)
--- NOTE | 2017-12-15 07:12 | HHI.CCPN ---
Subjective Remarks/Hospital Course 22-year-old male with history of seizure disorder, autism, presents for evaluation of a witnessed seizure. 3 hours prior to examination patient was at a store when he had a 1 minute generalized tonic-clonic seizure which his mother witnessed. He did hit his head against the ground. He has a laceration to the left parietal scalp as well as a generalized headache and some lightheadedness. He has been compliant with this Keppra and oxcarbazepine regimen. His mother administer diazepam at home prior to arrival. The CT of the head done at the emergency department showed a small 8 mm subdural hematoma. 12/14: Patient seen and examined. Wants to go home. No new seizure activity since hospitalization. Consultation to neurosurgery and neurology currently pending. Subjective 12/15: Afebrile. No seizures overnight. Noted that valproic acid was added per neurology yesterday 250 mg twice daily. EEG should reveal normal sleep with no epileptiform activity. Objective Vital Signs Date Time Temp Pulse Resp B/P (MAP) Pulse Ox O2 Delivery O2 Flow Rate FiO2 12/15/17 06:00 54 12/15/17 04:00 98.4 15 127/82 (97) 96 12/14/17 19:00 Room Air Result Diagram: 12/15/17 0306 12/15/17 0306 Imaging Last Impressions Head CT 12/14/17 0800 Signed Impressions: Service Date/Time: Thursday, December 14, 2017 09:56 - CONCLUSION: 1. Small subdural in the anterior and anterior lateral aspect of the left middle cranial fossa is no bigger and may actually be slightly smaller when compared to the prior. 2. There may be a small amount of blood now tracking along the left tentorium which could represent redistribution of the previously seen subdural collection. No midline shift. 3. Subtle, nondisplaced fracture through the floor of the left middle cranial fossa/sphenoid wing. Jorge Zepeda MD Disinhibition Score: 14.00 Aggression Score: 14.00 Lability Score: 14.00 Agitated Behavior Total Score: 14 Objective Remarks GENERAL: 22-year-old male currently resting in bed in no acute distress SKIN: Warm and dry. 2 cm left parietal scalp laceration with underlying hematoma. HEAD: Skin as noted above. Normocephalic. EYES: Pupils equal and round about 3 mm and reactive. No scleral icterus. No injection or drainage. ENT: No nasal bleeding or discharge. Mucous membranes pink and moist. NECK: Trachea midline. No JVD. CARDIOVASCULAR: Regular rate and rhythm. S1, S2. No S4. Without murmur RESPIRATORY: No accessory muscle use. Clear to auscultation. Breath sounds equal bilaterally. GASTROINTESTINAL: Abdomen soft, non-tender, nondistended. Hepatic and splenic margins not palpable. MUSCULOSKELETAL: No obvious deformities. No significant peripheral edema. NEUROLOGICAL: Awake and alert. No obvious cranial nerve deficits. Motor grossly within normal limits. Normal speech. Urinary Catheter: No Assessment to: Continue Vascular Central Line Catheter: No Assessment to: Continue A/P Assessment and Plan Neuro/Psych: Traumatic subdural hematoma/left Nondisplaced left middle cranial fossa/sphenoid wing fracture Seizure disorder NOS Autism CT brain 12/14 revealed a left subdural hematoma with an 8 mm diameter to middle cranial fossa and 5 mm of left crux Continue oxcarbazepine 600 mg by mouth twice daily and levetiracetam 1500 mg twice daily/home medication Divalproex 250 mg twice daily added per Dr. Patel/neurology Seizure precautions Neurology/neurosurgery have been consulted by overnight wool hanker. Appreciate input. Observing in ICU this past evening with possibility of epidural hematoma EEG has been ordered Repeat head CT 12/14 revealed stable subdural hematoma with nondisplaced left middle cranial fossa sphenoid wing fracture Acetaminophen 650 mg by mouth every 6 hours as needed fever/pain 1 through 10 Hydromorphone 0.5 mg IV every 4 hours as needed breakthrough pain CV: IV fluids been discontinued Goal keep systolic blood pressure greater than 100-110 Resp: Nasal cannula if indicated to maintain saturations greater than or equal to 92% Incentive spirometry while awake GI: Regular diet. Pantoprazole for GI prophylaxis Docusate sodium/senna 1 tablet twice daily for bowel regimen : No indication for Hammonds catheter Endo: Sliding scale insulin with Accu-Cheks before meals/at bedtime to maintain euglycemia/low regimen of NovoLog Renal: Creatinine currently within normal limits Monitor urine output Accurate I's and O's Heme: Thrombocytopenia Monitor CBC daily. Follow trends. No indication for transfusion of blood products at this time. Coags within normal limits ID: MRSA nares negative Monitor for sequelae of infection FEN: Replace electrolytes as clinically indicated MSK: Left parietal scalp laceration status post stapling PT/OT evaluate and treat Access -Utilize peripheral IV. Central line if indicated Prophylaxis -GI -pantoprazole -DVT -SCD/holding pharmacological prophylaxis with acute traumatic subdural hematoma. Initiate when okay with neurosurgery Level 2 follow-up. Patient is stable from a critical care medicine standpoint. Assign care to hospitalist in a.m. 12/16. Okay to transfer from ICU to neuro floor per neurosurgery and critical care medicine. Clement Giron MD Dec 15, 2017 07:12
[2017-12-15] MEDS: levETIRAcetam 500 MG TAB PO SCH ×2 (07:52→21:10)
[2017-12-15] MEDS: PANTOPRAZOLE SOD 40 MG DELAYED RELEASE TAB PO SCH (07:53)
[2017-12-15] MEDS: OXcarbazepine 600 MG TAB PO SCH ×2 (07:53→21:10)
[2017-12-15] MEDS: DIVALPROEX SODIUM E.R. 250 MG TAB PO SCH ×2 (07:53→21:10)
[2017-12-15] MEDS: INSULIN ASPART SUPPLEMENTAL SCALE SQ SCH ×4 (08:00→21:14)
[2017-12-15] MEDS: DOCUSATE SODIUM 50 MG/SENNA 8.6 MG TAB PO SCH ×2 (09:00→21:10)
[2017-12-15] MEDS: SODIUM CHLORIDE 0.9% FLUSH 10 ML FLUSH IV FLUSH SCH ×2 (09:00→21:10)
--- NOTE | 2017-12-15 11:32 | HHI.NSPN ---
(Cristopher Vallejo) History Chief Complaint: Slight headover over left eye that is improving. (Cristopher Vallejo) Interval History 12/14: 22-year-old male with history of autism and seizure disorder. The patient had a witnessed seizure last evening. He recalls part of the event and states that he was at a store when he felt the seizure starting. He states that he awoke at home with his mother cleaning some blood off of his head. The patient apparently did fall and strike his head on the ground with a left parietal scalp laceration. He was brought to the emergency room where a CT scan revealed subdural versus epidural hematoma. He has no complaint of significant headache. Mild neck and low back discomfort. No nausea or vomiting. 12/15: This morning the patient is awake and alert in bed watching TV. He reports a slight headache over the left orbital region and says that it is better than yesterday. He denies any dizziness, nausea, photophobia or double or blurry vision. He denies any extremity pain, numbness or tingling. He is oriented to person, place and time but does exhibit a slow thought process. There are no sensorimotor deficits noted upon examination. (Cristopher Vallejo) Exam Results 12/13/17 12/13/17 12/14/17 12/14/17 12/15/17 12/15/17 06:00 18:00 06:00 18:00 06:00 18:00 Intake Total 0 ml 600 ml Balance 0 ml 600 ml Intake Oral 0 ml 600 ml # Voids 0 1 2 # Bowel Movements 0 1 Vital Signs Date Time Temp Pulse Resp B/P (MAP) Pulse Ox O2 Delivery O2 Flow Rate FiO2 12/15/17 09:07 99 12/15/17 08:00 98.1 57 16 127/76 (93) 98 12/15/17 08:00 57 12/15/17 07:00 98 Room Air 12/15/17 06:00 54 12/15/17 04:00 56 12/15/17 04:00 98.4 56 15 127/82 (97) 96 12/15/17 02:00 64 12/15/17 00:00 62 12/15/17 00:00 98.5 62 13 127/76 (93) 97 12/14/17 22:00 66 12/14/17 20:00 98.1 74 20 122/66 (84) 97 12/14/17 20:00 74 12/14/17 19:00 98 Room Air 12/14/17 18:00 72 12/14/17 16:37 99 12/14/17 16:00 98.0 72 19 123/69 (87) 98 12/14/17 16:00 72 12/14/17 14:00 62 12/14/17 12:00 98.1 62 22 121/71 (88) 99 12/14/17 12:00 62 12/14/17 10:00 82 12/14/17 08:00 97.9 62 18 125/76 (92) 99 12/14/17 08:00 62 12/14/17 07:00 99 Room Air 12/14/17 04:00 98.2 66 16 128/74 (92) 99 12/14/17 03:30 Room Air 12/14/17 03:30 98.2 67 22 147/91 (109) 99 12/14/17 03:28 12/13/17 21:30 16 99 Room Air 12/13/17 21:24 97.6 80 16 118/77 (91) 98 Room Air (Cristopher Vallejo) Physical Examination GENERAL: Awake & alert, sitting up in bed watching TV. Affect somewhat flat but readily interacts. No apparent distress. HEAD: Normocephalic, left parietal scalp laceration well-approximated w/sumanth w/o any evident drainage, erythema or streaking. PERRLA 3 mm brisk, EOMI. No evident otorrhea or rhinorrhea. MMM & pink, tongue midline to protrusion. MUSCULOSKELETAL: ZULETA spontaneously & purposefully w/o difficulty. Extremities NTTP. NEUROLOGICAL: AAOx3. Speech clear but w/slow thought process. Follows simple commands w/o difficulty. CN II through XII appear grossly intact. Sensation intact to light touch to all extremities. Muscle strength is normal to all major flexion & extension groups of the extremities, to include wrist flexors/extensors & hand intrinsics/extrinsics. (Cristopher Vallejo) Lab, Micro, Other Results Recent Impressions Head CT 12/14/17 0800 Signed Impressions: Service Date/Time: Thursday, December 14, 2017 09:56 - CONCLUSION: 1. Small subdural in the anterior and anterior lateral aspect of the left middle cranial fossa is no bigger and may actually be slightly smaller when compared to the prior. 2. There may be a small amount of blood now tracking along the left tentorium which could represent redistribution of the previously seen subdural collection. No midline shift. 3. Subtle, nondisplaced fracture through the floor of the left middle cranial fossa/sphenoid wing. Jorge Zepeda MD Head CT 12/13/17 0000 Signed Impressions: Service Date/Time: Wednesday, December 13, 2017 22:56 - CONCLUSION: Small left- sided subdural hematoma measuring up to 8 mm in thickness in the middle cranial fossa. No significant mass effect or shift at this time. Braden Herrera MD Laboratory Tests Test 12/14/17 00:30 12/14/17 03:25 12/14/17 05:30 12/15/17 03:06 White Blood Count 12.8 TH/MM3 Red Blood Count 5.68 MIL/MM3 Hemoglobin 17.6 GM/DL Hematocrit 49.8 % Mean Corpuscular Volume 87.7 FL Mean Corpuscular Hemoglobin 30.9 PG Mean Corpuscular Hemoglobin Concent 35.3 % Red Cell Distribution Width 12.4 % Platelet Count 195 TH/MM3 Mean Platelet Volume 9.3 FL Neutrophils (%) (Auto) 92.1 % Lymphocytes (%) (Auto) 3.3 % Monocytes (%) (Auto) 4.5 % Eosinophils (%) (Auto) 0.0 % Basophils (%) (Auto) 0.1 % Neutrophils # (Auto) 11.8 TH/MM3 Lymphocytes # (Auto) 0.4 TH/MM3 Monocytes # (Auto) 0.6 TH/MM3 Eosinophils # (Auto) 0.0 TH/MM3 Basophils # (Auto) 0.0 TH/MM3 CBC Comment DIFF FINAL Differential Comment Blood Urea Nitrogen 9 MG/DL 8 MG/DL Creatinine 1.00 MG/DL 0.80 MG/DL Random Glucose 122 MG/DL 108 MG/DL Calcium Level 9.4 MG/DL 8.5 MG/DL Magnesium Level 2.5 MG/DL 2.1 MG/DL Sodium Level 141 MEQ/L 141 MEQ/L Potassium Level 4.2 MEQ/L 3.7 MEQ/L Chloride Level 103 MEQ/L 105 MEQ/L Carbon Dioxide Level 28.4 MEQ/L 29.1 MEQ/L Anion Gap 10 MEQ/L 7 MEQ/L Estimat Glomerular Filtration Rate 92 ML/MIN 119 ML/MIN Nasal Screen MRSA (PCR) MRSA NOT DETECTED Prothrombin Time 11.4 SEC 10.7 SEC Prothromb Time International Ratio 1.1 RATIO 1.1 RATIO Activated Partial Thromboplast Time 26.1 SEC 26.5 SEC Total Protein 6.4 GM/DL Albumin 3.6 GM/DL Phosphorus Level 3.0 MG/DL Alkaline Phosphatase 83 U/L Aspartate Amino Transf (AST/SGOT) 16 U/L Alanine Aminotransferase (ALT/SGPT) 23 U/L Total Bilirubin 0.7 MG/DL Test 12/15/17 07:20 White Blood Count 8.3 TH/MM3 Red Blood Count 4.72 MIL/MM3 Hemoglobin 14.7 GM/DL Hematocrit 41.7 % Mean Corpuscular Volume 88.5 FL Mean Corpuscular Hemoglobin 31.1 PG Mean Corpuscular Hemoglobin Concent 35.2 % Red Cell Distribution Width 12.4 % Platelet Count 146 TH/MM3 Mean Platelet Volume 9.0 FL Neutrophils (%) (Auto) 73.3 % Lymphocytes (%) (Auto) 17.5 % Monocytes (%) (Auto) 8.5 % Eosinophils (%) (Auto) 0.4 % Basophils (%) (Auto) 0.3 % Neutrophils # (Auto) 6.1 TH/MM3 Lymphocytes # (Auto) 1.4 TH/MM3 Monocytes # (Auto) 0.7 TH/MM3 Eosinophils # (Auto) 0.0 TH/MM3 Basophils # (Auto) 0.0 TH/MM3 CBC Comment DIFF FINAL Differential Comment (Cristopher Vallejo) Medical Decision Making Impression and Plan Impression: 1. Traumatic brain injury with relatively small left middle cranial fossa subdural versus epidural hematoma without significant mass-effect 2. Left middle cranial fossa skull base fracture-closed nondepressed. 3. Seizure disorder The patient continues to do well and remains neurologically intact. With improving headache over left orbital region. Bradycardia this morning. Reviewed labs for today. Resolution of leukocytosis. Haemoglobin level WNL. Mild thrombocytopenia. INR 1.1 & aPTT 26.5. Sodium 141. CT brain demonstrates possible reduction in size of left middle cranial fossa SDH. Blood tracking along left tentorium which may represent redistribution of SDH. No midline shift. Left middle cranial fossa/sphenoid wing fracture. Normal sleep EEG. Plan: Primary & critical care management per Office Services Manager. Neurology following for seizure disorder. Neuro checks. Stat CT brain for any decline in neuro status. Hold pharmacologic DVT prophylaxis. Mechanical DVT prophylaxis. Mobilise patient w/assistance as needed. Physical & Occupational Therapy eval & tx. The patient is able to be transferred to a regular med/surg floor from Neurosurgery's perspective. (Cristopher Vallejo) Attending Statement The exam, history, and the medical decision-making described in the above note were completed with the assistance of the mid-level provider. I reviewed and agree with the findings presented. I attest that I had a [id number] encounter with the patient on the same day, and personally performed and documented my assessment and findings in the medical record. Patient remains awake and alert. Slightly slow speech-appears to be normal baseline. Answers questions appropriately Follow simple commands well Extraocular movements intact Pupils 2-3 mm reactive. Facial motor symmetric Good strength all extremities Stable neurologic exam Stable for regular floor from a neurosurgical standpoint. Plan follow-up CT scan head next 1-2 days depending on clinical status. Would like to give one more CT scan prior to discharge to verify stability of left middle fossa hematoma. Neurology continues to follow for seizures. Valproic acid added Continue ulcer prophylaxis (Kris Curran MD) Cristopher Vallejo Dec 15, 2017 11:32 Kris Curran MD Dec 15, 2017 18:51
[2017-12-16] VITALS (7 sets, daily range): BP systolic 113–133; BP diastolic 61–85; PULSE 52–78; RESP 18–21; TEMP 97.3–98.5; O2SAT 97–99
[2017-12-16] MEDS: CHLORHEXIDINE GLUCONATE 2 % 1 PACK (2 CLOTHS) TOP SCH (04:00)
[2017-12-16 07:53] LABS: HEMATOCRIT 43.4 % (39.0-51.0); HEMOGLOBIN 15.4 GM/DL (13.0-17.0); MEAN CELL VOLUME 87.5 FL (80.0-100.0); MEAN CORPUSCULAR HEMOGLOBIN 31.1 PG (27.0-34.0); MEAN CORPUSCULAR HGB CONC 35.6 % (32.0-36.0); MEAN PLATELET VOLUME 9.1 FL (7.0-11.0); PLATELET COUNT 136 TH/MM3 (150-450); RED BLOOD COUNT 4.96 MIL/MM3 (4.50-5.90); RED CELL DISTRIBUTION WIDTH 12.3 % (11.6-17.2); WHITE BLOOD COUNT 6.1 TH/MM3 (4.0-11.0)
[2017-12-16] MEDS: INSULIN ASPART SUPPLEMENTAL SCALE SQ SCH ×4 (08:00→20:47)
[2017-12-16 08:20] LABS: BICARBONATE 27.1 MEQ/L (21.0-32.0); CALCIUM 8.8 MG/DL (8.5-10.1); CREATININE 0.71 MG/DL (0.60-1.30)
--- NOTE | 2017-12-16 08:50 | HHI.PR ---
Review/Management Diagnosis seizures---increase depakote. Once therapeutic, will taper off trileptal and he will be on depakote plus keppra Diagnosis/Plan: Subjective Subjective Comments No acute events reported No seizures States he is tolerating the depakote well Active Medications Current Medications Medications (Trade) Dose Ordered Sig/Yves Route Start Time Stop Time Status Last Admin (Trileptal) 600 mg BID PO 12/14/17 09:00 12/15/17 21:10 (Keppra) 1,500 mg BID PO 12/14/17 09:00 12/15/17 21:10 (NS Flush) 2 ml UNSCH PRN IV FLUSH 12/14/17 02:00 (NS Flush) 2 ml BID IV FLUSH 12/14/17 09:00 12/15/17 21:10 (Tylenol) 650 mg Q6H PRN PO 12/14/17 02:00 (Ativan Inj) 1 mg Q1H PRN IV PUSH 12/14/17 02:00 (Zofran Inj) 4 mg Q6H PRN IV PUSH 12/14/17 02:00 Miscellaneous Information 1 Q361D XX 12/14/17 02:00 (Chlorhexidine 2% Cloth) 3 pack Taper DAILY@04 TOP 12/14/17 04:00 12/10/18 03:59 (Chlorhexidine 2% Cloth) 3 pack UNSCH PRN TOP 12/14/17 02:00 (Isamar-Colace) 1 tab BID PO 12/14/17 09:00 12/15/17 21:10 (Milk Of Magnesia Liq) 30 ml Q12H PRN PO 12/14/17 02:00 (Senokot) 17.2 mg Q12H PRN PO 12/14/17 02:00 (Dulcolax Supp) 10 mg DAILY PRN RECTAL 12/14/17 02:00 (Lactulose Liq) 30 ml DAILY PRN PO 12/14/17 02:00 (Albuterol Neb) 2.5 mg Q2HR NEB PRN NEB 12/14/17 07:45 (Protonix) 40 mg DAILY PO 12/14/17 09:00 12/15/17 07:53 (Dilaudid Pf Inj) 0.5 mg Q4H PRN IV PUSH 12/14/17 07:45 (D50w (Vial) Inj) 50 ml UNSCH PRN IV PUSH 12/14/17 08:00 (Glucagon Inj) 1 mg UNSCH PRN OTHER 12/14/17 08:00 (NovoLOG SUPPLEMENTAL SCALE) 1 ACHS SLIDING SCALE SQ 12/14/17 08:00 Potassium Chloride 100 ml @ 50 mls/hr Q2H PRN IV 12/14/17 08:00 Potassium Chloride 100 ml @ 50 mls/hr Q2H PRN IV 12/14/17 08:00 (K-Lyte Cl Eff) 50 meq UNSCH PRN PO 12/14/17 08:00 Potassium Chloride 100 ml @ 25 mls/hr UNSCH PRN IV 12/14/17 08:00 Potassium Chloride 100 ml @ 50 mls/hr Q2H PRN IV 12/14/17 08:00 (Mag-Ox) 800 mg UNSCH PRN PO 12/14/17 08:00 (K-Phos) 2,000 mg Q4H PRN PO 12/14/17 08:00 Sodium Phosphate 30 mmol/Sodium Chloride 250 ml @ 42 mls/hr UNSCH PRN IV 12/14/17 08:00 (K-Phos) 2,000 mg UNSCH PRN PO/TUBE 12/14/17 08:00 Potassium Phosphate 30 mmol/ Sodium Chloride 260 ml @ 42 mls/hr UNSCH PRN IV 12/14/17 08:00 Magnesium Sulfate/ Dextrose 100 ml @ 100 mls/hr UNSCH PRN IV 12/14/17 08:45 Magnesium Sulfate/ Dextrose 100 ml @ 100 mls/hr UNSCH PRN IV 12/14/17 08:45 (Depakote Er) 250 mg BID PO 12/14/17 21:00 12/15/17 21:10 (Ativan Inj) 1 mg Q4H PRN IV PUSH 12/14/17 15:15 Allergies Allergies Coded Allergies adhesive (Verified Allergy, Severe, 12/13/17) latex (Unverified Allergy, Severe, HIVES , 12/13/17) Exam I&O / VS 12/16/17 12/16/17 12/17/17 15:00 23:00 07:00 # Voids 0 # Bowel Movements 0 Vital Signs Date Time Temp Pulse Resp B/P (MAP) Pulse Ox O2 Delivery O2 Flow Rate FiO2 12/16/17 07:30 97.3 56 21 126/69 (88) 99 12/16/17 04:00 97.7 52 20 119/75 (90) 98 12/16/17 00:00 98.2 61 20 133/76 (95) 97 12/15/17 22:00 63 12/15/17 20:00 64 12/15/17 20:00 97.9 64 17 97 12/15/17 19:00 97 Room Air 12/15/17 18:00 61 12/15/17 16:00 98.1 61 13 122/81 (95) 99 12/15/17 16:00 61 12/15/17 14:00 74 12/15/17 12:00 98.5 70 19 131/84 (100) 98 12/15/17 12:00 70 12/15/17 10:00 64 12/15/17 09:07 99 Exam Comments alert, speech is normal comprehension normal CN intact MOTOR 5/[address]UE [address] Results [address]--stable small SDH Micro and Labs Laboratory Tests Test 12/16/17 07:37 White Blood Count 6.1 Red Blood Count 4.96 Hemoglobin 15.4 Hematocrit 43.4 Mean Corpuscular Volume 87.5 Mean Corpuscular Hemoglobin 31.1 Mean Corpuscular Hemoglobin Concent 35.6 Red Cell Distribution Width 12.3 Platelet Count 136 Mean Platelet Volume 9.1 Blood Urea Nitrogen 7 Creatinine 0.71 Random Glucose 82 Calcium Level 8.8 Sodium Level 140 Potassium Level 3.7 Chloride Level 103 Carbon Dioxide Level 27.1 Anion Gap 10 Estimat Glomerular Filtration Rate 136 Valproic Acid (Depakene) Level 30 Clif Patel MD PhD Dec 16, 2017 08:50
[2017-12-16] MEDS: SODIUM CHLORIDE 0.9% FLUSH 10 ML FLUSH IV FLUSH SCH ×2 (09:03→20:44)
[2017-12-16] MEDS: PANTOPRAZOLE SOD 40 MG DELAYED RELEASE TAB PO SCH (09:03)
[2017-12-16] MEDS: DOCUSATE SODIUM 50 MG/SENNA 8.6 MG TAB PO SCH ×2 (09:04→20:45)
[2017-12-16] MEDS: levETIRAcetam 500 MG TAB PO SCH ×2 (09:04→20:42)
[2017-12-16] MEDS: DIVALPROEX SODIUM E.R. 500 MG TAB PO SCH ×2 (09:24→20:42)
[2017-12-16] MEDS: OXcarbazepine 600 MG TAB PO SCH ×2 (09:32→20:41)
--- NOTE | 2017-12-16 11:21 | HHI.NSPN ---
(Cristopher Vallejo) History Chief Complaint: None (Cristopher Vallejo) Interval History 12/14: 22-year-old male with history of autism and seizure disorder. The patient had a witnessed seizure last evening. He recalls part of the event and states that he was at a store when he felt the seizure starting. He states that he awoke at home with his mother cleaning some blood off of his head. The patient apparently did fall and strike his head on the ground with a left parietal scalp laceration. He was brought to the emergency room where a CT scan revealed subdural versus epidural hematoma. He has no complaint of significant headache. Mild neck and low back discomfort. No nausea or vomiting. 12/15: This morning the patient is awake and alert in bed watching TV. He reports a slight headache over the left orbital region and says that it is better than yesterday. He denies any dizziness, nausea, photophobia or double or blurry vision. He denies any extremity pain, numbness or tingling. He is oriented to person, place and time but does exhibit a slow thought process. There are no sensorimotor deficits noted upon examination. 12/16: The patient has been transferred to a regular med/surg from [facility] since last seen. When seen the patient is asleep in bed but awakens to voice. He is alert after that and readily interacts. He denies any headache, dizziness or visual difficulty. He denies any pain, numbness, tingling or weakness to the extremities. He is oriented to person, place and time but his thought process is slow. He has no sensorimotor deficits evident upon examination. (Cristopher Vallejo) Exam Results 12/14/17 12/14/17 12/15/17 12/15/17 12/16/17 12/16/17 06:00 18:00 06:00 18:00 06:00 18:00 Intake Total 0 ml 600 ml 480 ml Balance 0 ml 600 ml 480 ml Intake Oral 0 ml 600 ml 480 ml # Voids 0 1 2 1 0 # Bowel Movements 0 1 0 0 Vital Signs Date Time Temp Pulse Resp B/P (MAP) Pulse Ox O2 Delivery O2 Flow Rate FiO2 12/16/17 09:22 Room Air 12/16/17 07:30 97.3 56 21 126/69 (88) 99 12/16/17 04:00 97.7 52 20 119/75 (90) 98 12/16/17 00:00 98.2 61 20 133/76 (95) 97 12/15/17 22:00 63 12/15/17 20:00 64 12/15/17 20:00 97.9 64 17 97 12/15/17 19:00 97 Room Air 12/15/17 18:00 61 12/15/17 16:00 98.1 61 13 122/81 (95) 99 12/15/17 16:00 61 12/15/17 14:00 74 12/15/17 12:00 98.5 70 19 131/84 (100) 98 12/15/17 12:00 70 12/15/17 10:00 64 12/15/17 09:07 99 12/15/17 08:00 98.1 57 16 127/76 (93) 98 12/15/17 08:00 57 12/15/17 07:00 98 Room Air 12/15/17 06:00 54 12/15/17 04:00 56 12/15/17 04:00 98.4 56 15 127/82 (97) 96 12/15/17 02:00 64 12/15/17 00:00 62 12/15/17 00:00 98.5 62 13 127/76 (93) 97 12/14/17 22:00 66 12/14/17 20:00 98.1 74 20 122/66 (84) 97 12/14/17 20:00 74 12/14/17 19:00 98 Room Air 12/14/17 18:00 72 12/14/17 16:37 99 12/14/17 16:00 98.0 72 19 123/69 (87) 98 12/14/17 16:00 72 12/14/17 14:00 62 12/14/17 12:00 98.1 62 22 121/71 (88) 99 12/14/17 12:00 62 12/14/17 10:00 82 12/14/17 08:00 97.9 62 18 125/76 (92) 99 12/14/17 08:00 62 12/14/17 07:00 99 Room Air 12/14/17 04:00 98.2 66 16 128/74 (92) 99 12/14/17 03:30 Room Air 12/14/17 03:30 98.2 67 22 147/91 (109) 99 12/14/17 03:28 12/13/17 21:30 16 99 Room Air 12/13/17 21:24 97.6 80 16 118/77 (91) 98 Room Air (Cristopher Vallejo) Physical Examination GENERAL: Asleep in bed but awakens to voice. He is alert after that and readily interacts. His affect is slightly flat. No apparent distress. HEAD: Normocephalic, left parietal scalp laceration well-approximated w/sumanth w/o any evident drainage, erythema or streaking. PERRLA 3 mm brisk, EOMI. MMM & pink, tongue midline to protrusion. MUSCULOSKELETAL: ZULETA spontaneously & purposefully w/o difficulty. Extremities NTTP. NEUROLOGICAL: AAOx3. Speech clear but w/slow thought process. Follows simple commands w/o difficulty. CN II through XII appear grossly intact. Sensation intact to light touch to all extremities. Muscle strength is normal to all major flexion & extension groups of the extremities. (Cristopher Vallejo) Lab, Micro, Other Results Recent Impressions Head CT 12/14/17 0800 Signed Impressions: Service Date/Time: Thursday, December 14, 2017 09:56 - CONCLUSION: 1. Small subdural in the anterior and anterior lateral aspect of the left middle cranial fossa is no bigger and may actually be slightly smaller when compared to the prior. 2. There may be a small amount of blood now tracking along the left tentorium which could represent redistribution of the previously seen subdural collection. No midline shift. 3. Subtle, nondisplaced fracture through the floor of the left middle cranial fossa/sphenoid wing. Jorge Zepeda MD Laboratory Tests Test 12/14/17 00:30 12/14/17 03:25 12/14/17 05:30 12/15/17 03:06 White Blood Count 12.8 TH/MM3 Red Blood Count 5.68 MIL/MM3 Hemoglobin 17.6 GM/DL Hematocrit 49.8 % Mean Corpuscular Volume 87.7 FL Mean Corpuscular Hemoglobin 30.9 PG Mean Corpuscular Hemoglobin Concent 35.3 % Red Cell Distribution Width 12.4 % Platelet Count 195 TH/MM3 Mean Platelet Volume 9.3 FL Neutrophils (%) (Auto) 92.1 % Lymphocytes (%) (Auto) 3.3 % Monocytes (%) (Auto) 4.5 % Eosinophils (%) (Auto) 0.0 % Basophils (%) (Auto) 0.1 % Neutrophils # (Auto) 11.8 TH/MM3 Lymphocytes # (Auto) 0.4 TH/MM3 Monocytes # (Auto) 0.6 TH/MM3 Eosinophils # (Auto) 0.0 TH/MM3 Basophils # (Auto) 0.0 TH/MM3 CBC Comment DIFF FINAL Differential Comment Blood Urea Nitrogen 9 MG/DL 8 MG/DL Creatinine 1.00 MG/DL 0.80 MG/DL Random Glucose 122 MG/DL 108 MG/DL Calcium Level 9.4 MG/DL 8.5 MG/DL Magnesium Level 2.5 MG/DL 2.1 MG/DL Sodium Level 141 MEQ/L 141 MEQ/L Potassium Level 4.2 MEQ/L 3.7 MEQ/L Chloride Level 103 MEQ/L 105 MEQ/L Carbon Dioxide Level 28.4 MEQ/L 29.1 MEQ/L Anion Gap 10 MEQ/L 7 MEQ/L Estimat Glomerular Filtration Rate 92 ML/MIN 119 ML/MIN Nasal Screen MRSA (PCR) MRSA NOT DETECTED Prothrombin Time 11.4 SEC 10.7 SEC Prothromb Time International Ratio 1.1 RATIO 1.1 RATIO Activated Partial Thromboplast Time 26.1 SEC 26.5 SEC Total Protein 6.4 GM/DL Albumin 3.6 GM/DL Phosphorus Level 3.0 MG/DL Alkaline Phosphatase 83 U/L Aspartate Amino Transf (AST/SGOT) 16 U/L Alanine Aminotransferase (ALT/SGPT) 23 U/L Total Bilirubin 0.7 MG/DL Test 12/15/17 07:20 12/16/17 07:37 White Blood Count 8.3 TH/MM3 6.1 TH/MM3 Red Blood Count 4.72 MIL/MM3 4.96 MIL/MM3 Hemoglobin 14.7 GM/DL 15.4 GM/DL Hematocrit 41.7 % 43.4 % Mean Corpuscular Volume 88.5 FL 87.5 FL Mean Corpuscular Hemoglobin 31.1 PG 31.1 PG Mean Corpuscular Hemoglobin Concent 35.2 % 35.6 % Red Cell Distribution Width 12.4 % 12.3 % Platelet Count 146 TH/MM3 136 TH/MM3 Mean Platelet Volume 9.0 FL 9.1 FL Neutrophils (%) (Auto) 73.3 % Lymphocytes (%) (Auto) 17.5 % Monocytes (%) (Auto) 8.5 % Eosinophils (%) (Auto) 0.4 % Basophils (%) (Auto) 0.3 % Neutrophils # (Auto) 6.1 TH/MM3 Lymphocytes # (Auto) 1.4 TH/MM3 Monocytes # (Auto) 0.7 TH/MM3 Eosinophils # (Auto) 0.0 TH/MM3 Basophils # (Auto) 0.0 TH/MM3 CBC Comment DIFF FINAL Differential Comment Blood Urea Nitrogen 7 MG/DL Creatinine 0.71 MG/DL Random Glucose 82 MG/DL Calcium Level 8.8 MG/DL Sodium Level 140 MEQ/L Potassium Level 3.7 MEQ/L Chloride Level 103 MEQ/L Carbon Dioxide Level 27.1 MEQ/L Anion Gap 10 MEQ/L Estimat Glomerular Filtration Rate 136 ML/MIN Valproic Acid (Depakene) Level 30 MCG/ML (Cristopher Vallejo) Medical Decision Making Impression and Plan Impression: 1. Traumatic brain injury with relatively small left middle cranial fossa subdural versus epidural hematoma without significant mass-effect 2. Left middle cranial fossa skull base fracture-closed nondepressed. 3. Seizure disorder The patient is doing well and remains neurologically intact. His headache has resolved. Bradycardia this morning as well as yesterday morning. Reviewed labs for today. Worsening of thrombocytopenia. Sodium 140. CT brain demonstrates possible reduction in size of left middle cranial fossa SDH. Blood tracking along left tentorium which may represent redistribution of SDH. No midline shift. Left middle cranial fossa/sphenoid wing fracture. Normal sleep EEG. Plan: Primary & critical care management per Assignment Desk Editor. Neurology following for seizure disorder. Neuro checks. Stat CT brain for any decline in neuro status. Hold pharmacologic DVT prophylaxis. Mechanical DVT prophylaxis. Mobilise patient w/assistance as needed. Physical & Occupational Therapy eval & tx. CT brain in AM. (Cristopher Vallejo) Attending Statement The exam, history, and the medical decision-making described in the above note were completed with the assistance of the mid-level provider. I reviewed and agree with the findings presented. I attest that I had a [id number] encounter with the patient on the same day, and personally performed and documented my assessment and findings in the medical record. (Kris Curran MD) Cristopher Vallejo Dec 16, 2017 11:21 Kris Curran MD Dec 16, 2017 15:19
--- NOTE | 2017-12-16 11:52 | HHI.PR ---
Subjective Remarks Follow up for seizure, subdural hematoma. Patient is currently doing well. No acute concerns. Tolerating diet well. Objective Vitals Vital Signs Date Time Temp Pulse Resp B/P (MAP) Pulse Ox O2 Delivery O2 Flow Rate FiO2 12/16/17 11:32 97.8 78 20 128/79 (95) 99 12/16/17 11:17 99 12/16/17 09:22 Room Air 12/16/17 07:30 97.3 56 21 126/69 (88) 99 12/16/17 04:00 97.7 52 20 119/75 (90) 98 12/16/17 00:00 98.2 61 20 133/76 (95) 97 12/15/17 22:00 63 12/15/17 20:00 64 12/15/17 20:00 97.9 64 17 97 12/15/17 19:00 97 Room Air 12/15/17 18:00 61 12/15/17 16:00 98.1 61 13 122/81 (95) 99 12/15/17 16:00 61 12/15/17 14:00 74 12/15/17 12:00 98.5 70 19 131/84 (100) 98 12/15/17 12:00 70 I/O 12/15/17 12/15/17 12/15/17 12/16/17 12/16/17 12/16/17 07:00 15:00 23:00 07:00 15:00 23:00 Intake Total 480 ml Balance 480 ml Intake Oral 480 ml # Voids 2 1 0 # Bowel Movements 1 0 0 Result Diagram: 12/16/17 0737 12/16/1737 Imaging Last Impressions Head CT 12/14/17 0800 Signed Impressions: Service Date/Time: Thursday, December 14, 2017 09:56 - CONCLUSION: 1. Small subdural in the anterior and anterior lateral aspect of the left middle cranial fossa is no bigger and may actually be slightly smaller when compared to the prior. 2. There may be a small amount of blood now tracking along the left tentorium which could represent redistribution of the previously seen subdural collection. No midline shift. 3. Subtle, nondisplaced fracture through the floor of the left middle cranial fossa/sphenoid wing. Jorge Zepeda MD Objective Remarks GENERAL: Alert, NAD SKIN: Warm and dry. HEAD: Normocephalic. EYES: No scleral icterus. No injection or drainage. NECK: Supple, trachea midline. No JVD or lymphadenopathy. CARDIOVASCULAR: Regular rate and rhythm without murmurs, gallops, or rubs. RESPIRATORY: Breath sounds equal bilaterally. No accessory muscle use. GASTROINTESTINAL: Abdomen soft, non-tender, nondistended. MUSCULOSKELETAL: No cyanosis, or edema. BACK: Nontender without obvious deformity. No CVA tenderness. Procedures EEG 12/14/2017 This appears to be a normal sleep EEG. A/P Problem List: (1) Subdural hematoma ICD Code: I62.00 - Nontraumatic subdural hemorrhage, unspecified Status: Acute Assessment and Plan Mr. Oakley is a 22-year-old male with a history of seizure activity, autism who presented to the emergency department on 12/13/2017 due to seizure activity. During a generalized tonic-clonic seizure activity he ate his head against the ground. ED workup indicated a small 8 mm subdural hematoma. Neurosurgery was consulted. Acute small subdural hematoma Neurosurgery following. Neurosurgery would like to obtain CT head on 2017. Clinically patient is doing well. Patient can likely go home on 12/17/2017. Seizure activity Continue Depakote 500 mg twice daily, Keppra 1500 mg twice daily Patient is also currently on Trileptal 600 mg twice daily. Neurology would like to taper it off. Full code. Ambulation. Andrea Mckinney DO Dec 16, 2017 11:52 am
[2017-12-17 00:47] VITALS: BP 123/78; PULSE 56; RESP 18; TEMP 98; O2SAT 98
[2017-12-17] MEDS: CHLORHEXIDINE GLUCONATE 2 % 1 PACK (2 CLOTHS) TOP SCH (04:00)
[2017-12-17 04:54] VITALS: BP 108/61; PULSE 55; RESP 18; TEMP 97.7; O2SAT 98
[2017-12-17] MEDS: INSULIN ASPART SUPPLEMENTAL SCALE SQ SCH (07:57)
[2017-12-17] MEDS: SODIUM CHLORIDE 0.9% FLUSH 10 ML FLUSH IV FLUSH SCH (07:57)
[2017-12-17] MEDS: PANTOPRAZOLE SOD 40 MG DELAYED RELEASE TAB PO SCH (07:59)
[2017-12-17] MEDS: levETIRAcetam 500 MG TAB PO SCH (07:59)
[2017-12-17] MEDS: OXcarbazepine 600 MG TAB PO SCH (07:59)
[2017-12-17 08:00] VITALS: BP 113/62; PULSE 53; RESP 18; TEMP 97.6; O2SAT 98
[2017-12-17] MEDS: DOCUSATE SODIUM 50 MG/SENNA 8.6 MG TAB PO SCH (08:00)
[2017-12-17] MEDS: DIVALPROEX SODIUM E.R. 500 MG TAB PO SCH (08:00)
--- NOTE | 2017-12-17 09:16 | HHI.PR ---
Subjective Remarks The margin of the bed. He appears in not acute distress. No seizures no motor deficit. Cleared by neurosurgery for discharge. Patient wants to go home. Has family support. Objective Vitals Vital Signs Date Time Temp Pulse Resp B/P (MAP) Pulse Ox O2 Delivery O2 Flow Rate FiO2 12/17/17 08:00 97.6 53 18 113/62 (79) 98 12/17/17 07:56 Room Air 12/17/17 04:54 97.7 55 18 108/61 (77) 98 12/17/17 00:47 98.0 56 18 123/78 (93) 98 12/16/17 22:46 Room Air 12/16/17 20:00 98.5 60 18 127/85 (99) 97 12/16/17 19:08 Room Air 12/16/17 16:01 98.2 62 20 113/61 (78) 99 12/16/17 11:32 97.8 78 20 128/79 (95) 99 12/16/17 11:17 99 12/16/17 09:22 Room Air I/O 12/16/17 12/16/17 12/16/17 12/17/17 12/17/17 12/17/17 07:00 15:00 23:00 07:00 15:00 23:00 Intake Total 720 ml Balance 720 ml Intake Oral 720 ml # Voids 0 2 # Bowel Movements 0 Result Diagram: 12/16/17 0737 12/16/17 0737 Imaging Last Impressions Head CT 12/14/17 0800 Signed Impressions: Service Date/Time: Thursday, December 14, 2017 09:56 - CONCLUSION: 1. Small subdural in the anterior and anterior lateral aspect of the left middle cranial fossa is no bigger and may actually be slightly smaller when compared to the prior. 2. There may be a small amount of blood now tracking along the left tentorium which could represent redistribution of the previously seen subdural collection. No midline shift. 3. Subtle, nondisplaced fracture through the floor of the left middle cranial fossa/sphenoid wing. Jorge Zepeda MD Objective Remarks GENERAL: Alert, NAD CARDIOVASCULAR: Regular rate and rhythm without murmurs, gallops, or rubs. RESPIRATORY: Breath sounds equal bilaterally. No accessory muscle use. GASTROINTESTINAL: Abdomen soft, non-tender, nondistended. MUSCULOSKELETAL: No cyanosis, or edema. BACK: Nontender without obvious deformity. No CVA tenderness. Procedures EEG 12/14/2017 This appears to be a normal sleep EEG. A/P Problem List: (1) Subdural hematoma ICD Code: I62.00 - Nontraumatic subdural hemorrhage, unspecified Status: Acute Assessment and Plan Mr. Oakley is a 22-year-old male with a history of seizure activity, autism who presented to the emergency department on 12/13/2017 due to seizure activity. During a generalized tonic-clonic seizure activity he ate his head against the ground. ED workup indicated a small 8 mm subdural hematoma. Neurosurgery was consulted. Acute small subdural hematoma Neurosurgery following. Neurosurgery would like to obtain CT head on 12/17/2017. Clinically patient is doing well. Patient can likely go home on 12/17/2017. Seizure activity Continue Depakote 500 mg twice daily, Keppra 1500 mg twice daily Patient is also currently on Trileptal 600 mg twice daily. Neurology would like to taper it off. Full code. Ambulation. DC plan when improves and cleared by nsx DC home Rachel Cullen MD Dec 17, 2017 09:16
[2017-12-17] MEDS ORDERED: PANT40TA3 PO (09:18)
[2017-12-17] MEDS ORDERED: DEPA500T3 PO (09:18)
[2017-12-17] MEDS ORDERED: PERI PO (09:18)
[2017-12-17] MEDS ORDERED: LEVE500 PO (09:18)
--- NOTE | 2017-12-17 09:18 | HHI.DS ---
Discharge Summary Admission Date Dec 14, 2017 at 00:27 Discharge Date: Dec 17, 2017 Admitting Diagnosis Subdural hematoma. Breakthrough seizure. (1) Subdural hematoma ICD Code: I62.00 - Nontraumatic subdural hemorrhage, unspecified Status: Acute Procedures EEG 12/14/2017 This appears to be a normal sleep EEG. Brief History - From Admission 22-year-old male with history of seizure disorder, autism, presents for evaluation of a witnessed seizure. 3 hours prior to examination patient was at a store when he had a 1 minute generalized tonic-clonic seizure which his mother witnessed. He did hit his head against the ground. He has a laceration to the left parietal scalp as well as a generalized headache and some lightheadedness. He has been compliant with this Keppra and oxcarbazepine regimen. His mother administer diazepam at home prior to arrival. The CT of the head done at the emergency department showed a small 8 mm subdural hematoma. CBC/BMP: 12/16/17 0737 12/16/17 0737 Significant Findings Laboratory Tests Test 12/15/17 03:06 12/15/17 07:20 12/16/17 07:37 Random Glucose 108 MG/DL (74-106) Platelet Count 146 TH/MM3 (150-450) 136 TH/MM3 (150-450) Neutrophils (%) (Auto) 73.3 % (16.0-70.0) Monocytes (%) (Auto) 8.5 % (0.0-8.0) Valproic Acid (Depakene) Level 30 MCG/ML (50-100) PE at Discharge GENERAL: Alert, NAD CARDIOVASCULAR: Regular rate and rhythm without murmurs, gallops, or rubs. RESPIRATORY: Breath sounds equal bilaterally. No accessory muscle use. GASTROINTESTINAL: Abdomen soft, non-tender, nondistended. MUSCULOSKELETAL: No cyanosis, or edema. BACK: Nontender without obvious deformity. No CVA tenderness. Hospital Course Mr. Oakley is a 22-year-old male with a history of seizure activity, autism who presented to the emergency department on 12/13/2017 due to seizure activity. During a generalized tonic-clonic seizure activity he ate his head against the ground. ED workup indicated a small 8 mm subdural hematoma. Neurosurgery was consulted. Acute small subdural hematoma Neurosurgery following. Neurosurgery would like to obtain CT head on 12/17/2017. Clinically patient is doing well. Patient can likely go home on 12/17/2017. Seizure activity Continue Depakote 500 mg twice daily, Keppra 1500 mg twice daily Patient is also currently on Trileptal 600 mg twice daily. Neurology would like to taper it off. Full code. Ambulation. The patient improved significantly, he is cleared by nsx for discharge. Family is mom at bedside. DC home in stable condition to follow-up with PCP and consultants as outpatient. E Pt Condition on Discharge: Stable Discharge Disposition: Discharge Home Discharge Time: > 30 minutes Discharge Instructions DIET: Follow Instructions for: As Tolerated, No Restrictions Activities you can perform: Regular-No Restrictions Activities to Avoid: Driving (until cleared by neuro ) Follow up Referrals: Appointment for Follow Up @ [facility] Appointment for Follow Up @ Neurology Neurology - 2 Weeks Neurosurgery - 01/01/18 with Kris Curran MD Avoid any productions containing aspirin, NSAIDs (ibuprofen, naproxen, Aleve, Motrin, Naprosyn, etc.) or fish oil at least for the next month. Follow up with Neurosurgery on Thursday at 3:00 PM. Call the office at [phone] to make arrangements for a CT scan of the brain to be completed before your office appointment. PCP Follow-up - 2-3 Days PCP Follow-up New Medications: Divalproex ER (Depakote ER) 500 Mg Gina 500 MG PO BID for Seizure Control, #60 TAB Levetiracetam (Keppra) 500 Mg Tab 1500 MG PO BID for Seizure Control, #180 TAB Pantoprazole (Pantoprazole) 40 Mg Tab 40 MG PO DAILY for dyspepsia, #30 TAB Sennosides-Docusate Sodium (Gnp Senna Plus 8.6-50 mg) 8.6 Mg-50 Mg Tab 1 TAB PO BID for Constipation, #60 TAB Continued Medications: Oxcarbazepine (Oxcarbazepine) 600 Mg Tab 600 MG PO BID for Seizure Control, #180 TAB 3 Refills Discontinued Medications: Levetiracetam (Keppra) 750 Mg Tab 2 TAB PO BID for Control Seizures, #360 TAB 3 Refills Rachel Cullen MD Dec 17, 2017 09:18
--- NOTE | 2017-12-17 09:22 | RADRPT ---
EXAM DATE/TIME: 12/17/2017 08:41 [facility] COMPARISON: CT BRAIN W/O CONTRAST, December 14, 2017, 9:56. INDICATIONS : Follow up bleed. RADIATION DOSE: 38.62 CTDIvol (mGy) MEDICAL HISTORY : Seizures. Bleed SURGICAL HISTORY : None. ENCOUNTER: Subsequent ACUITY: 3 days PAIN SCALE: 0/10 LOCATION: cranial TECHNIQUE: Multiple contiguous axial images were obtained of the head. Using automated exposure control and adj ustment of the mA and/or kV according to patient size, radiation dose was kept as low as reasonably a chievable to obtain optimal diagnostic quality images. DICOM format image data is available electro nically for review and comparison. FINDINGS: CEREBRUM: There again is a small extra-axial fluid collection in the left middle cranial fossa the temporal tip . It measures 7 mm similar to the previous study. The ventricles are normal for age. No evidence of midline shift, mass lesion, hemorrhage or acute infarction. No extra-axial fluid collections are see n. POSTERIOR FOSSA: The tentorial hemorrhage seen previously has essentially resolved. The cerebellum and brainstem are i ntact. The 4th ventricle is midline. The cerebellopontine angle is unremarkable. EXTRACRANIAL: The visualized portion of the orbits is intact. SKULL: Nondisplaced left temporal fracture is stable. The. CONCLUSION: Extra-axial hemorrhage or at the left temporal tip with a small hairline fracture unchanged since . The tentorial hemorrhage seen previously has resolved. Marquez Parra MD on December 17, 2017 at 9:18 Board Certified Radiologist. This report was verified electronically.
--- NOTE | 2017-12-17 11:01 | HHI.NSPN ---
(Cirstopher Vallejo) History Chief Complaint: Minimal headache behind left eye. (Cristopher Vallejo) Interval History 12/14: 22-year-old male with history of autism and seizure disorder. The patient had a witnessed seizure last evening. He recalls part of the event and states that he was at a store when he felt the seizure starting. He states that he awoke at home with his mother cleaning some blood off of his head. The patient apparently did fall and strike his head on the ground with a left parietal scalp laceration. He was brought to the emergency room where a CT scan revealed subdural versus epidural hematoma. He has no complaint of significant headache. Mild neck and low back discomfort. No nausea or vomiting. 12/15: This morning the patient is awake and alert in bed watching TV. He reports a slight headache over the left orbital region and says that it is better than yesterday. He denies any dizziness, nausea, photophobia or double or blurry vision. He denies any extremity pain, numbness or tingling. He is oriented to person, place and time but does exhibit a slow thought process. There are no sensorimotor deficits noted upon examination. 12/16: The patient has been transferred to a regular med/surg from [facility] since last seen. When seen the patient is asleep in bed but awakens to voice. He is alert after that and readily interacts. He denies any headache, dizziness or visual difficulty. He denies any pain, numbness, tingling or weakness to the extremities. He is oriented to person, place and time but his thought process is slow. He has no sensorimotor deficits evident upon examination. 12/17: When seen this morning the patient is awake and alert in bed visiting with his mother and watching TV. He does have a minimal headache behind the left eye which he says is "really nothing at all." He denies any dizziness or visual difficulty. He has no pain, numbness, tingling or weakness to the extremities. He had a repeat CT brain this morning which was essentially stable. He is intact neurologically upon examination. (Cristopher Vallejo) Exam Results 12/15/17 12/15/17 12/16/17 12/16/17 12/17/17 12/17/17 06:00 18:00 06:00 18:00 06:00 18:00 Intake Total 480 ml 720 ml Balance 480 ml 720 ml Intake Oral 480 ml 720 ml # Voids 2 1 0 2 # Bowel Movements 1 0 0 Vital Signs Date Time Temp Pulse Resp B/P (MAP) Pulse Ox O2 Delivery O2 Flow Rate FiO2 12/17/17 08:00 97.6 53 18 113/62 (79) 98 12/17/17 07:56 Room Air 12/17/17 04:54 97.7 55 18 108/61 (77) 98 12/17/17 00:47 98.0 56 18 123/78 (93) 98 12/16/17 22:46 Room Air 12/16/17 20:00 98.5 60 18 127/85 (99) 97 12/16/17 19:08 Room Air 12/16/17 16:01 98.2 62 20 113/61 (78) 99 12/16/17 11:32 97.8 78 20 128/79 (95) 99 12/16/17 11:17 99 12/16/17 09:22 Room Air 12/16/17 07:30 97.3 56 21 126/69 (88) 99 12/16/17 04:00 97.7 52 20 119/75 (90) 98 12/16/17 00:00 98.2 61 20 133/76 (95) 97 12/15/17 22:00 63 12/15/17 20:00 64 12/15/17 20:00 97.9 64 17 97 12/15/17 19:00 97 Room Air 12/15/17 18:00 61 12/15/17 16:00 98.1 61 13 122/81 (95) 99 12/15/17 16:00 61 12/15/17 14:00 74 12/15/17 12:00 98.5 70 19 131/84 (100) 98 12/15/17 12:00 70 12/15/17 10:00 64 12/15/17 09:07 99 12/15/17 08:00 98.1 57 16 127/76 (93) 98 12/15/17 08:00 57 12/15/17 07:00 98 Room Air 12/15/17 06:00 54 12/15/17 04:00 56 12/15/17 04:00 98.4 56 15 127/82 (97) 96 12/15/17 02:00 64 12/15/17 00:00 62 12/15/17 00:00 98.5 62 13 127/76 (93) 97 12/14/17 22:00 66 12/14/17 20:00 98.1 74 20 122/66 (84) 97 12/14/17 20:00 74 12/14/17 19:00 98 Room Air 12/14/17 18:00 72 12/14/17 16:37 99 12/14/17 16:00 98.0 72 19 123/69 (87) 98 12/14/17 16:00 72 12/14/17 14:00 62 12/14/17 12:00 98.1 62 22 121/71 (88) 99 12/14/17 12:00 62 (Cristopher Vallejo) Physical Examination GENERAL: Awake & alert in bed visiting w/his mother & watching TV. His affect is slightly flat & he readily interacts. No apparent distress. HEAD: Normocephalic. PERRLA 3 mm brisk, EOMI. MMM & pink, tongue midline to protrusion. MUSCULOSKELETAL: ZULETA spontaneously & purposefully w/o difficulty. Extremities NTTP. NEUROLOGICAL: AAOx3. Speech clear but w/slow thought process. Follows simple commands w/o difficulty. CN II through XII appear grossly intact. Sensation intact to light touch to all extremities. Muscle strength is normal to all major flexion & extension groups of the extremities. (Cristopher Vallejo) Lab, Micro, Other Results Recent Impressions Head CT 12/17/17 0600 Signed Impressions: Service Date/Time: November 08:41 - CONCLUSION: Extra-axial hemorrhage or at the left temporal tip with a small hairline fracture unchanged since 12/14/17. The tentorial hemorrhage seen previously has resolved. Marquez Parra MD Laboratory Tests Test 12/15/17 03:06 12/15/17 07:20 12/16/17 07:37 Prothrombin Time 10.7 SEC Prothromb Time International Ratio 1.1 RATIO Activated Partial Thromboplast Time 26.5 SEC Blood Urea Nitrogen 8 MG/DL 7 MG/DL Creatinine 0.80 MG/DL 0.71 MG/DL Random Glucose 108 MG/DL 82 MG/DL Total Protein 6.4 GM/DL Albumin 3.6 GM/DL Calcium Level 8.5 MG/DL 8.8 MG/DL Phosphorus Level 3.0 MG/DL Magnesium Level 2.1 MG/DL Alkaline Phosphatase 83 U/L Aspartate Amino Transf (AST/SGOT) 16 U/L Alanine Aminotransferase (ALT/SGPT) 23 U/L Total Bilirubin 0.7 MG/DL Sodium Level 141 MEQ/L 140 MEQ/L Potassium Level 3.7 MEQ/L 3.7 MEQ/L Chloride Level 105 MEQ/L 103 MEQ/L Carbon Dioxide Level 29.1 MEQ/L 27.1 MEQ/L Anion Gap 7 MEQ/L 10 MEQ/L Estimat Glomerular Filtration Rate 119 ML/MIN 136 ML/MIN White Blood Count 8.3 TH/MM3 6.1 TH/MM3 Red Blood Count 4.72 MIL/MM3 4.96 MIL/MM3 Hemoglobin 14.7 GM/DL 15.4 GM/DL Hematocrit 41.7 % 43.4 % Mean Corpuscular Volume 88.5 FL 87.5 FL Mean Corpuscular Hemoglobin 31.1 PG 31.1 PG Mean Corpuscular Hemoglobin Concent 35.2 % 35.6 % Red Cell Distribution Width 12.4 % 12.3 % Platelet Count 146 TH/MM3 136 TH/MM3 Mean Platelet Volume 9.0 FL 9.1 FL Neutrophils (%) (Auto) 73.3 % Lymphocytes (%) (Auto) 17.5 % Monocytes (%) (Auto) 8.5 % Eosinophils (%) (Auto) 0.4 % Basophils (%) (Auto) 0.3 % Neutrophils # (Auto) 6.1 TH/MM3 Lymphocytes # (Auto) 1.4 TH/MM3 Monocytes # (Auto) 0.7 TH/MM3 Eosinophils # (Auto) 0.0 TH/MM3 Basophils # (Auto) 0.0 TH/MM3 CBC Comment DIFF FINAL Differential Comment Valproic Acid (Depakene) Level 30 MCG/ML (Cristopher Vallejo) Medical Decision Making Impression and Plan Impression: 1. Traumatic brain injury with relatively small left middle cranial fossa subdural versus epidural hematoma without significant mass-effect 2. Left middle cranial fossa skull base fracture-closed nondepressed. 3. Seizure disorder The patient continues to do well and remains neurologically intact. His has a minimal headache behind the left eye. Bradycardia this morning. CT brain demonstrates stable left temporal horn extra-axial haemorrhage w/resolution of tentorial haemorrhage. Plan: Discussed discharge instructions with the patient & his mother. Primary & critical care management per [employer]. Neurology following for seizure disorder. Neuro checks. Stat CT brain for any decline in neuro status. Hold pharmacologic DVT prophylaxis. Mechanical DVT prophylaxis. Mobilise patient w/assistance as needed. Physical & Occupational Therapy eval & tx. Stable for discharge from Neurosurgery's perspective. Follow up with Neurosurgery on Thursday at 3:00 PM. Will need to complete CT brain before office appointment. He should avoid any products containing aspirin, NSAIDs or fish oil at least for the next month. (Cristopher Vallejo) Attending Statement The exam, history, and the medical decision-making described in the above note were completed with the assistance of the mid-level provider. I reviewed and agree with the findings presented. I attest that I had a [id number] encounter with the patient on the same day, and personally performed and documented my assessment and findings in the medical record. The patient remains awake and alert on today's examination. His follow-up CT scan of the head reveals stable left temporal extra-axial hematoma without significant mass-effect. Signs and symptoms to watch for have been discussed with the patient and family He is stable for discharge home today. He is to avoid aspirin, NSAIDs. Plan follow-up CT scan of the head in approximately 2 weeks to make certain that there is proper resolution of the extra-axial hematoma. He will return to the emergency room if any significant changes occur. (Kris Curran MD) Cristopher Vallejo Dec 17, 2017 11:01 Kris Curran MD Dec 17, 2017 12:17
[2017-12-17 13:05] VITALS: O2SAT 98
== END 2017-12-17 13:57 | disposition home or self-care (01) | DRG 86 ==
LOC: NEPE 21:02 → NEDA 12-14 00:27 → N03A 12-14 03:20 → N05B 12-15 23:42
PROVIDERS: ADMIT Hospitalist; ATTEND Hospitalist
PROC: 0HQ0XZZ Repair Scalp Skin, External Approach (ICD-10-PCS; principal; 2017-12-14)
DX: S06.5X0A Traumatic subdural hemorrhage without loss of consciousness, initial encounter (principal); F84.0 Autistic disorder; D69.6 Thrombocytopenia, unspecified; S01.01XA Laceration without foreign body of scalp, initial encounter; D72.829 Elevated white blood cell count, unspecified; R00.1 Bradycardia, unspecified; S02.19XA Other fracture of base of skull, initial encounter for closed fracture; G40.409 Other generalized epilepsy and epileptic syndromes, not intractable, without status epilepticus; W18.39XA Other fall on same level, initial encounter; Z79.899 Other long term (current) drug therapy
CPT/HCPCS: 12001; 70450; 80048; 80053; 80164; 82948; 83735; 84100; 85025; 85027; 85610; 85730; 87641; 90471; 90714; 94150; 95819; J7030

== ENCOUNTER 2018-01-06 11:50 | Emergency (ER) | payer MEDICAID ==
[~2018-01-06] VITALS: Ht 185.4 cm; Wt 86.0 kg
[~2018-01-06 11:50] MED LIST changes: +DEPA500T3 PO; -KEPP750T PO; +LEVE500 PO; +PANT40TA3 PO; +PERI PO
[2018-01-06 11:56] VITALS: BP 127/80; PULSE 74; RESP 20; TEMP 98.4; O2SAT 97
--- NOTE | 2018-01-06 12:48 | PD ---
HPI Chief Complaint: Medical Clearance Time Seen by Provider: 12:32 Travel History International Travel<30 days: No Contact w/Intl Traveler<30days: No Traveled to known affect area: No History of Present Illness HPI Patient comes to the emergency department for evaluation of a lesion over right anterior jaramillo. Mom reports for start of his 2 small dots after having a seizure 2 weeks ago she noticed it got somewhat larger 2 days ago. Denies any fevers, other known injury, pain, or anything making symptoms better or worse. Reports outlining area today. Denies being evaluated for this previously. Severity mild. Patient's mother reports that she tried getting in with his primary care doctor today but was unable and decided to come to emergency department as she would like it evaluated. [facility] Past Medical History Developmental Delay: Yes Neurologic: Yes Psychiatric: Yes (AUTISTIC) Respiratory: Yes (BRONCHITIS) Immunizations Current: Yes Seizures: Yes Social History Alcohol Use: No Tobacco Use: No Substance Use: No Allergies-Medications (Allergen,Severity, Reaction): Coded Allergies: adhesive (Verified Allergy, Severe, 12/13/17) latex (Unverified Allergy, Severe, HIVES , 12/13/17) Reported Meds & Prescriptions Reported Meds & Active Scripts Active Pantoprazole (Pantoprazole Sodium) 40 Mg Tab 40 Mg PO DAILY Gnp Senna Plus 8.6-50 mg (Sennosides-Docusate Sodium) 8.6 Mg-50 Mg Tab 1 Tab PO BID Depakote ER (Divalproex Sodium) 500 Mg Gina 500 Mg PO BID Keppra (Levetiracetam) 500 Mg Tab 1,500 Mg PO BID Oxcarbazepine 600 Mg Tab 600 Mg PO BID Review of Systems Except as stated in HPI: all other systems reviewed are Neg Physical Exam Narrative GENERAL: Well-developed, well nourished, in no acute distress, and non-ill appearing. SKIN: Focused skin assessment warm and dry. Patient has appears to be a healing bruise noted over right anterior jaramillo. It is combination of yellow and red mixed. Is afebrile, nontender, without crepitus, without induration, without fluctuation, or open wound. Does not appear infectious. Is not consistent with cellulitis. HEAD: Atraumatic. Normocephalic. EYES: Pupils equal and round. EOMI. No scleral icterus. No injection or drainage. ENT: No nasal bleeding or discharge. Mucous membranes pink and moist. NECK: Trachea midline. Supple. No nuclear rigidity. RESPIRATORY: No accessory muscle use. No respiratory distress. MUSCULOSKELETAL: No obvious deformities. No clubbing. No cyanosis. No edema. Full range of motion. Normal gait. NEUROLOGICAL: Awake and alert. No obvious cranial nerve deficits. Motor grossly within normal limits. Normal speech. PSYCHIATRIC: Appropriate mood and affect; insight and judgment normal. Data Data Last Documented VS Vital Signs Date Time Temp Pulse Resp B/P (MAP) Pulse Ox O2 Delivery O2 Flow Rate FiO2 01/06/18 11:56 98.4 74 20 127/80 (96) 97 Orders Orders Ed Discharge Order (01/06/18 12:48) [facility] Medical Decision Making Medical Screen Exam Complete: Yes Emergency Medical Condition: Yes Differential Diagnosis Contusion, cellulitis, wound check Narrative Course The patient appears to have suffered a contusion of the extremity. There is no clinical evidence to suspect bony injury by exam. The patient has full range of motion on active and passive motions. There is no significant edema or effusion or evidence of joint injury nor proximal or distal joint effusion/injury. The distal extremity appears neurovascularly intact, without evidence of neurovascular injury nor compartment syndrome. The patient is to follow up with their regular physician. The patient and mother agrees with plan. Patient in no obvious distress upon re-evaluation. Any questions/concerns in reference to patient diagnosis/condition discussed and clarified prior to patient's discharge. Reinforced sheer importance of close follow up with patient 's primary physician or primary care clinic. Instructed patient to return to ED immediately, if symptoms return/worsen. Patient showed understanding of above instructions. Further instructions and recommendations were detailed in discharge paperwork. Patient ambulated without difficulty out of ED at discharge. Diagnosis Primary Impression: Contusion Qualified Codes: S80.11XA - Contusion of right lower leg, initial encounter Patient Instructions: Contusion in Adults (ED), General Instructions Additional Instructions: Follow-up with your primary care physician in 3-5 days for reevaluation. Return to the emergency department if symptoms get worse. Disposition: 01 DISCHARGE HOME Condition: Stable Jarod Cowart January 06, 2018 12:48
== END 2018-01-06 13:01 | disposition home or self-care (01) ==
LOC: NEPK 11:50
DX: S80.11XA Contusion of right lower leg, initial encounter (principal); F84.0 Autistic disorder; Z79.899 Other long term (current) drug therapy
CPT/HCPCS: 99281